=== PATIENT | male | born 1955 | race Caucasian/White ===

== ENCOUNTER 2016-09-25 15:23 | Inpatient (IN) | payer OTHER ==
--- NOTE | 2016-09-25 15:34 | ED ---
General Adult HPI - General Source: RN notes reviewed <Owen Cisneros - Last Filed: 09/25/16 16:41> <Peewee Justin - Last Filed: 09/25/16 18:35> - General Stated complaint: Syncope Time Seen by Provider: 09/25/16 15:25 - History of Present Illness Initial comments: This is a 61-year-old male presents to the emergency department complaining that he has been sick for about 5 days with a fever. Patient states the fever broke on Sunday has had a fever since. Patient states initially he was coughing a lot and occasionally coughed up some sputum. He denied any chest pain palpitations or shortness of breath. Patient states today he was at home he was trying to keep himself hydrated he stood up to go to the bathroom he walked a few feet became dizzy and went to the floor he states he may have passed out for 5 seconds but that said it was for very short period of time. Patient denies any injury when he let himself to the floor. Patient denies any nausea vomiting or diarrhea. Patient denies any dysuria or hematuria. She denies any headache patient denies numbness weakness. Patient denies any back pain. (Owen Cisneros) - Related Data Home Medications Medication Instructions Recorded Confirmed Aspirin EC [Ecotrin Low Dose] 81 mg PO DAILY 09/25/16 09/25/16 Atorvastatin [Lipitor] 40 mg PO DAILY 09/25/16 09/25/16 DULoxetine HCL [Cymbalta] 20 mg PO DAILY 09/25/16 09/25/16 Fluticasone Nasal [place] [Flonase 2 spr EA NOSTRIL DAILY 09/25/16 09/25/16 Nasal [place]] HYDROcodone/APAP 5-325MG [[place] 1 - 2 tab PO Q4HR PRN 09/25/16 09/25/16 5-325] Insulin Aspart [NovoLOG] See Protocol SQ AC-TID 09/25/16 09/25/16 Insulin Glargine [Lantus] 80 unit SQ BID 09/25/16 09/25/16 Losartan/Hydrochlorothiazide 1 tab PO DAILY 09/25/16 09/25/16 [Losartan-Hctz 100-25 mg Tab] Metoprolol Tartrate [Lopressor] 50 mg PO DAILY 09/25/16 09/25/16 Multivitamins, Thera [Multivitamin] 1 tab PO DAILY 09/25/16 09/25/16 Omeprazole 20 mg PO DAILY 09/25/16 09/25/16 Allergies Allergy/AdvReac Type Severity Reaction Status Date / Time lorazepam [From Ativan] AdvReac Confusion Verified 09/25/16 16:32 Review of Systems ROS Other: All systems not noted in ROS Statement are negative. <Owen Cisneros - Last Filed: 09/25/16 16:41> ROS Other: All systems not noted in ROS Statement are negative. <Peewee Justin - Last Filed: 09/25/16 18:35> ROS Statement: Those systems with pertinent positive or pertinent negative responses have been documented in the HPI. General Exam <Owen Cisneros - Last Filed: 09/25/16 16:41> <Peewee Justin - Last Filed: 09/25/16 18:35> - General Exam Comments Initial Comments: GENERAL: Patient is well-developed and well-nourished. Patient is nontoxic and well- hydrated and is in mild distress. ENT: Neck is soft and supple. No significant lymphadenopathy is noted. Oropharynx is clear. Moist mucous membranes. Neck has full range of motion without eliciting any pain. EYES: The sclera were anicteric and conjunctiva were pink and moist. Extraocular movements were intact and pupils were equal round and reactive to light. Eyelids were unremarkable. PULMONARY: Unlabored respirations. Good breath sounds bilaterally. No audible rales rhonchi or wheezing was noted. CARDIOVASCULAR: There is a regular rate and rhythm without any murmurs gallops or rubs. ABDOMEN: Soft and nontender with normal bowel sounds. SKIN: Skin is clear with no lesions or rashes and otherwise unremarkable. NEUROLOGIC: Patient is alert and oriented x3. Cranial nerves II through XII are grossly intact. Motor and sensory are also intact. Normal speech, volume and content. Symmetrical smile. MUSCULOSKELETAL: Normal extremities with adequate strength and full range of motion. LYMPHATICS: No significant lymphadenopathy is noted PSYCHIATRIC: Normal psychiatric evaluation. Normal interpersonal interactions appears functionally intact in deals appropriately with others. No signs of depression. No signs of anxiety. (Owen Cisneros) Medical Decision Making - Lab Data Result diagrams: 09/25/16 15:35 09/25/16 15:35 <Owen Cisneros - Last Filed: 09/25/16 16:41> - Lab Data Result diagrams: 09/25/16 15:35 09/25/16 15:35 <Peewee Justin - Last Filed: 09/25/16 18:35> - Medical Decision Making EKG shows normal sinus rhythm at 90 bpm [place] interval is 138 QRS is 94 QT interval 372 QTC is 477. Patient's EKG shows no ST segment elevation or depression or T-wave abdomen is noted Orthostatics were positive from sitting to lying to sitting Dr. Justin will be taking over the care of this patient at 5pm. (Owen Cisneros) The laboratories reviewed and shows elevation of the renal function studies with a creatinine at 1.7. The magnesium was low at 1.3. Liver function studies are elevated but he states that he has a history of similar. Chest x- ray shows cardiomegaly. Overall is felt as though he likely recently had a viral illness which is essentially resolved but he still dehydrated and this likely caused a bump and his BUN and creatinine. Is felt as though he benefit from admission overnight for further treatment. He is agreeable and patient is admitted as a short stay admission. Case is discussed with internal medicine and they are agreeable. (Peewee Justin) - Lab Data Lab Results 09/25/16 09/25/16 09/25/16 Range/Units 15:35 15:35 15:35 WBC 7.7 (3.8-10.6) k/uL RBC 4.82 (4.30-5.90) m/uL Hgb 12.3 L (13.0-17.5) gm/dL Hct 39.3 (39.0-53.0) % MCV 81.4 (80.0-100.0) fL MCH 25.5 (25.0-35.0) pg MCHC 31.3 (31.0-37.0) g/dL RDW 16.9 H (11.5-15.5) % Plt Count 271 (150-450) k/uL Neutrophils % 55 % Lymphocytes % 36 % Monocytes % 5 % Eosinophils % 2 % Basophils % 1 % Neutrophils # 4.3 (1.3-7.7) k/uL Lymphocytes # 2.8 (1.0-4.8) k/uL Monocytes # 0.4 (0-1.0) k/uL Eosinophils # 0.2 (0-0.7) k/uL Basophils # 0.0 (0-0.2) k/uL Hypochromasia Slight Anisocytosis Slight PT (9.0-12.0) sec INR (<1.1) APTT (22.0-30.0) sec Sodium 144 (137-145) mmol/L Potassium 4.0 (3.5-5.1) mmol/L Chloride 102 (98-107) mmol/L Carbon Dioxide 26 (22-30) mmol/L Anion Gap 16 mmol/L BUN 26 H (9-20) mg/dL Creatinine 1.70 H (0.66-1.25) mg/dL Est GFR (MDRD) Af Amer 50 (>60 ml/min/1.73 sqM) Est GFR (MDRD) Non-Af 41 (>60 ml/min/1.73 sqM) Glucose 144 H (74-99) mg/dL Calcium 9.2 (8.4-10.2) mg/dL Magnesium 1.3 L (1.6-2.3) mg/dL Total Bilirubin 0.9 (0.2-1.3) mg/dL AST 134 H (17-59) U/L ALT 85 H (21-72) U/L Alkaline Phosphatase 98 (38-126) U/L Total Creatine Kinase 81 (55-170) U/L CK-MB (CK-2) 0.9 (0.0-2.4) ng/mL CK-MB (CK-2) Rel Index 1.1 Troponin I <0.012 (0.000-0.034) ng/mL Total Protein 7.9 (6.3-8.2) g/dL Albumin 4.0 (3.5-5.0) g/dL Urine Color Urine Appearance (Clear) Urine pH (5.0-8.0) Ur Specific [place] (1.001-1.035) Urine Protein (Negative) Urine Glucose (UA) (Negative) Urine Ketones (Negative) Urine Blood (Negative) Urine Nitrate (Negative) Urine Bilirubin (Negative) Urine Urobilinogen (<2.0) mg/dL Ur Leukocyte Esterase (Negative) Urine RBC (0-5) /hpf Urine WBC (0-5) /hpf Amorphous Sediment (None) /hpf Hyaline Casts (0-2) /lpf Urine Mucus (None) /hpf 09/25/16 09/25/16 Range/Units 15:35 18:15 WBC (3.8-10.6) k/uL RBC (4.30-5.90) m/uL Hgb (13.0-17.5) gm/dL Hct (39.0-53.0) % MCV (80.0-100.0) fL MCH (25.0-35.0) pg MCHC (31.0-37.0) g/dL RDW (11.5-15.5) % Plt Count (150-450) k/uL Neutrophils % % Lymphocytes % % Monocytes % % Eosinophils % % Basophils % % Neutrophils # (1.3-7.7) k/uL Lymphocytes # (1.0-4.8) k/uL Monocytes # (0-1.0) k/uL Eosinophils # (0-0.7) k/uL Basophils # (0-0.2) k/uL Hypochromasia Anisocytosis PT 11.5 (9.0-12.0) sec INR 1.1 (<1.1) APTT 24.5 (22.0-30.0) sec Sodium (137-145) mmol/L Potassium (3.5-5.1) mmol/L Chloride (98-107) mmol/L Carbon Dioxide (22-30) mmol/L Anion Gap mmol/L BUN (9-20) mg/dL Creatinine (0.66-1.25) mg/dL Est GFR (MDRD) Af Amer (>60 ml/min/1.73 sqM) Est GFR (MDRD) Non-Af (>60 ml/min/1.73 sqM) Glucose (74-99) mg/dL Calcium (8.4-10.2) mg/dL Magnesium (1.6-2.3) mg/dL Total Bilirubin (0.2-1.3) mg/dL AST (17-59) U/L ALT (21-72) U/L Alkaline Phosphatase (38-126) U/L Total Creatine Kinase (55-170) U/L CK-MB (CK-2) (0.0-2.4) ng/mL CK-MB (CK-2) Rel Index Troponin I (0.000-0.034) ng/mL Total Protein (6.3-8.2) g/dL Albumin (3.5-5.0) g/dL Urine Color Dark Yellow Urine Appearance Cloudy (Clear) Urine pH 5.5 (5.0-8.0) Ur Specific [place] 1.015 (1.001-1.035) Urine Protein 1+ H (Negative) Urine Glucose (UA) Negative (Negative) Urine Ketones Negative (Negative) Urine Blood Negative (Negative) Urine Nitrate Negative (Negative) Urine Bilirubin Negative (Negative) Urine Urobilinogen 2.0 (<2.0) mg/dL Ur Leukocyte Esterase Negative (Negative) Urine RBC 3 (0-5) /hpf Urine WBC 8 H (0-5) /hpf Amorphous Sediment Few H (None) /hpf Hyaline Casts 181 H (0-2) /lpf Urine Mucus Rare H (None) /hpf Disposition <Owen Cisneros - Last Filed: 09/25/16 16:41> Time of Disposition: 18:35 Decision Date: 09/25/16 Decision Time: 18:35 <Peewee Justin - Last Filed: 09/25/16 18:35> Clinical Impression: Syncope, Dehydration, Hypomagnesemia, Transaminitis, Acute kidney injury, Cardiomegaly Disposition: ADMITTED IP TO THIS HOSP Condition: Fair
[2016-09-25 15:43] LABS: Anisocytosis Slight; Basophils % (A) 1 %; CH 25.7; CHCM 31.7; Eosinophils # (A) 0.2 k/uL (0-0.7); Eosinophils % (A) 2 %; HCT 39.3 % (39.0-53.0); HDW 2.82; HGB 12.3 gm/dL (13.0-17.5); Hypochromasia Slight; Luc # (Auto) 0.14; Luc % (Auto) 2; Lymphocytes # (A) 2.8 k/uL (1.0-4.8); Lymphocytes % (A) 36 %; MCH 25.5 pg (25.0-35.0); MCHC 31.3 g/dL (31.0-37.0); MCV 81.4 fL (80.0-100.0); Mean Platelet Volume 6.5; Monocytes # (A) 0.4 k/uL (0-1.0); Monocytes % (A) 5 %; Neutrophils # (A) 4.3 k/uL (1.3-7.7); Neutrophils % (A) 55 %; RBC 4.82 m/uL (4.30-5.90); RDW 16.9 % (11.5-15.5); WBC 7.7 k/uL (3.8-10.6); WBC (Perox) 7.65
[2016-09-25 15:52] LABS: Calcium 9.2 mg/dL (8.4-10.2); Magnesium 1.3 mg/dL (1.6-2.3); Total Bilirubin 0.9 mg/dL (0.2-1.3); Total Protein 7.9 g/dL (6.3-8.2)
[2016-09-25] MEDS: SODIUM CHLORIDE 0.9% 500 ML IV STA ×2 (15:53→16:23)
[2016-09-25 16:05] LABS: Creatine Kinase 81 U/L (55-170)
[2016-09-25 16:19] LABS: Creatine Kinase MB 0.9 ng/mL (0.0-2.4); Troponin I <0.012 ng/mL (0.000-0.034)
[2016-09-25 16:21] LABS: INR 1.1 (<1.1); Partial Thromboplastin Time 24.5 sec (22.0-30.0); Prothrombin Time 11.5 sec (9.0-12.0)
--- NOTE | 2016-09-25 16:53 | XR ---
EXAMINATION TYPE: XR chest 2V DATE OF EXAM: 09/25/2016 4:50 PM COMPARISON: NONE HISTORY: Syncope today and flulike symptoms TECHNIQUE: Frontal and lateral views of the chest are obtained. FINDINGS: There is no focal air space opacity, pleural effusion, or pneumothorax seen. The cardiac silhouette size is enlarged. The osseous structures are intact. IMPRESSION: Cardiomegaly without acute pulmonary process.
[2016-09-25 18:28] LABS: Amorphous Sediment,Urine Few /hpf; Appearance,Urine Cloudy (Clear); Bilirubin,Urine Negative (Negative); Glucose,Urine (UA) Negative (Negative); Ketones,Urine Negative (Negative); Leukocyte Esterase,Urine Negative (Negative); Mucus,Urine Rare /hpf; Nitrite,Urine Negative (Negative); PH, Urine 5.5 (5.0-8.0); Particle Count 6979; Protein,Urine 1+ (Negative); RBC,Urine 3 /hpf (0-5); Specific Gravity,Urine 1.015 (1.001-1.035); UA Billing (MACRO vs. MICRO) MICRO; WBC,Urine 8 /hpf (0-5)
[2016-09-25] MEDS ORDERED: SODIUM CHLORIDE 0.9% 500 ML IV STA (18:31)
[2016-09-25] MEDS ORDERED: SODIUM CHLORIDE 0.9% 1,000 ML IV STA (18:31)
[2016-09-25] MEDS ORDERED: ACETAMINOPHEN TAB 325 MG TAB PO PRN (18:36)
[2016-09-25] MEDS ORDERED: NALOXONE 0.4 MG/ML 1 ML VIAL IV PRN (18:36)
[2016-09-25] MEDS ORDERED: ONDANSETRON 4 MG/2 ML VIAL IVP PRN (18:36)
[2016-09-25] MEDS ORDERED: HYDROcodone/APAP 5-325MG 1 EACH TAB PO PRN (18:38)
[2016-09-25 19:00] LABS: Glucose,Whole Blood 82 mg/dL (75-99)
[2016-09-25] MEDS ORDERED: INSULIN GLARGINE 100 UNIT/ML 10 ML VIAL SQ SCH (21:00)
[2016-09-25] MEDS: ENOXAPARIN 40 MG/0.4 ML SYRINGE SQ SCH (21:13)
[2016-09-25] MEDS: MAGNESIUM SULFATE-D5W PMX 1 GM in DEXTROSE/WATER 1 100ML.BAG IVPB SCH ×2 (21:13→23:36)
[2016-09-25 21:31] LABS: Glucose,Whole Blood 152 mg/dL (75-99)
[2016-09-26 01:48] LABS: Glucose,Whole Blood 142 mg/dL (75-99)
[2016-09-26 05:56] LABS: Glucose,Whole Blood 120 mg/dL (75-99)
[2016-09-26 06:28] LABS: Anisocytosis Slight; Basophils % (A) 0 %; CH 25.5; CHCM 31.4; Eosinophils # (A) 0.2 k/uL (0-0.7); Eosinophils % (A) 2 %; HCT 34.5 % (39.0-53.0); HDW 2.73; HGB 10.8 gm/dL (13.0-17.5); Hypochromasia Slight; Luc # (Auto) 0.14; Luc % (Auto) 2; Lymphocytes # (A) 2.4 k/uL (1.0-4.8); Lymphocytes % (A) 36 %; MCH 25.6 pg (25.0-35.0); MCHC 31.4 g/dL (31.0-37.0); MCV 81.5 fL (80.0-100.0); Mean Platelet Volume 6.6; Monocytes # (A) 0.4 k/uL (0-1.0); Monocytes % (A) 6 %; Neutrophils # (A) 3.5 k/uL (1.3-7.7); Neutrophils % (A) 53 %; RBC 4.24 m/uL (4.30-5.90); RDW 16.8 % (11.5-15.5); WBC 6.6 k/uL (3.8-10.6); WBC (Perox) 6.77
[2016-09-26 06:48] LABS: Anion Gap 13 mmol/L; Blood Urea Nitrogen 21 mg/dL (9-20); Calcium 8.6 mg/dL (8.4-10.2); Carbon Dioxide 26 mmol/L (22-30); Chloride 101 mmol/L (98-107); Glucose 122 mg/dL (74-99); Magnesium 1.6 mg/dL (1.6-2.3); Non-African American GFR(MDRD) 56 (>60 ml/min/1.73 sqM); Potassium 3.3 mmol/L (3.5-5.1); Sodium 140 mmol/L (137-145)
[2016-09-26] MEDS ORDERED: PANTOPRAZOLE 40 MG TABLET PO SCH (07:30)
[2016-09-26] MEDS ORDERED: Potassium Replacement Protocol 1 EACH MISC MISCELLANE PRN (08:41)
[2016-09-26] MEDS ORDERED: Magnesium Replacement Protocol 1 EACH MISC MISCELLANE PRN (08:42)
[2016-09-26] MEDS ORDERED: FLUTICASONE 50MCG/SPRAY NASAL 16GM EA NOSTRIL SCH (09:00)
[2016-09-26] MEDS ORDERED: INSULIN GLARGINE 100 UNIT/ML 10 ML VIAL SQ SCH (09:00)
[2016-09-26] MEDS ORDERED: LOSARTAN-HCTZ 50-12.5 MG 1 EACH TAB PO SCH (09:00)
[2016-09-26] MEDS ORDERED: ASPIRIN 81 MG CHEW PO SCH (09:00)
[2016-09-26] MEDS ORDERED: DULoxetine HCL 20 MG CAPSULE.DR PO SCH (09:00)
[2016-09-26] MEDS ORDERED: ATORVASTATIN 40 MG TAB PO SCH (09:00)
[2016-09-26] MEDS ORDERED: MULTIVITAMINS, THERA 1 EACH TAB PO SCH (09:00)
[2016-09-26] MEDS ORDERED: METOPROLOL TARTRATE 50 MG TAB PO SCH (09:00)
[2016-09-26] MEDS: ENOXAPARIN 40 MG/0.4 ML SYRINGE SQ SCH (09:52)
[2016-09-26] MEDS: MAGNESIUM SULFATE-D5W PMX 1 GM in DEXTROSE/WATER 1 100ML.BAG IVPB SCH ×2 (09:54→11:34)
[2016-09-26] MEDS: POTASSIUM CHLORIDE ER 20 MEQ TAB.ER PO SCH ×2 (09:55→11:34)
[2016-09-26 10:11] LABS: Hemoglobin A1C 9.1 % (4.2-6.1)
--- NOTE | 2016-09-26 10:43 | ECHOF ---
Referral Reason:syncope MEASUREMENTS -------- HEIGHT: 182.9 cm WEIGHT: 127.9 kg BP: 148/87 RVIDd: 3.4 cm (< 3.3) IVSd: 1.2 cm (0.6 - 1.1) LVIDd: 5.0 cm (3.9 - 5.3) LVPWd: 1.2 cm (0.6 - 1.1) IVSs: 1.9 cm LVIDs: 3.4 cm LVPWs: 1.9 cm LA Diam: 3.5 cm (2.7 - 3.8) LAESV Index (A-L): 21.36 ml/m Ao Diam: 3.7 cm (2.0 - 3.7) AV Cusp: 2.4 cm (1.5 - 2.6) MV EXCURSION: 19.089 mm (> 18.000) MV EF SLOPE: 75 mm/s (70 - 150) EPSS: 0.7 cm MV E Michael: 0.74 m/s MV DecT: 179 ms MV A Michael: 0.92 m/s MV E/A Ratio: 0.81 RAP: 5.00 mmHg RVSP: 32.23 mmHg FINDINGS -------- Sinus rhythm. This was a technically adequate study. The left ventricular size is normal. There is borderline concentric left ventricular hypertrophy. Overall left ventricular systolic function is normal with, an EF between 60 - 65 %. The right ventricle is mildly enlarged. The left atrium is normal in size. Normal LA size by volume 22+/-6 ml/m2. The right atrium is normal in size. The aortic valve is trileaflet and appears structurally normal. Mild mitral annular calcification present. There is trace mitral regurgitation. Mild tricuspid regurgitation present. Right ventricular systolic pressure is normal at < 35 mmHg. The pulmonic valve is normal. There is no pulmonic regurgitation present. The aortic root is dilated measuring 3.7cm. There is no pericardial effusion. CONCLUSIONS -------- 1. Sinus rhythm. 2. Mild mitral annular calcification present. 3. There is trace mitral regurgitation. 4. Mild tricuspid regurgitation present. 5. Right ventricular systolic pressure is normal at < 35 mmHg. 6. The aortic root is dilated measuring 3.7cm. 7. There is no pericardial effusion. 8. This was a technically adequate study. 9. The left ventricular size is normal. 10. There is borderline concentric left ventricular hypertrophy. 11. Overall left ventricular systolic function is normal with, an EF between 60 - 65 %. 12. The right ventricle is mildly enlarged. 13. Normal LA size by volume 22+/-6 ml/m2. 14. The right atrium is normal in size. 15. The aortic valve is trileaflet and appears structurally normal. PHARMACY STUDENT: Parul Smith RDCS
[2016-09-26 11:05] VITALS: BMI 38.3
[2016-09-26 11:32] LABS: Glucose,Whole Blood 221 mg/dL (75-99)
[2016-09-26 11:54] VITALS: BP 137/67; PULSE 78; RESP 18; TEMP 98.9
[2016-09-26] MEDS ORDERED: INSULIN LISPRO (humaLOG) 300 UNIT/3 ML VIAL SQ SCH (12:30)
--- NOTE | 2016-09-26 18:15 | HP ---
H&P AND DISCHARGE SUMMARY DATE OF ADMISSION: Patient is a 61-year-old gentleman who came in with an episode of syncope that lasted for a few seconds. Patient did not have any seizure-like activity. His episode was not a seizure. Patient was found to be in acute renal failure with elevated BUN and creatinine. Patient also has hypokalemia. Patient was on lisinopril hydrochlorothiazide. Patient had flu-like symptoms about a week ago; completely resolved. Denied any diarrhea. Influenza testing here is negative. The rest of the workup is negative. Patient had an echocardiogram which was negative. Patient is clinically doing well. Dizziness has completely resolved. Patient will be discharged today with some modifications in medications. I will discharge him on losartan only without hydrochlorothiazide. Patient will be encouraged to drink water at home. Patient will be discharged today. His kidney function improved from 1.6 creatinine to 1.3. Patient is otherwise clinically doing well. Even the losartan I asked him to hold it tomorrow in spite of elevated blood pressure. He can start that medication on morning. REVIEW OF SYSTEMS: CONSTITUTIONAL: No fever, no malaise, no fatigue. HEENT: No recent visual problems or hearing problems. Denied any sore throat. CARDIOVASCULAR: As described in HPI. Patient denied any chest pain. Patient denied any orthopnea, PND. Patient denied any shortness of breath. PULMONARY: No shortness of breath, no cough, no hemoptysis. GASTROINTESTINAL: No diarrhea, no nausea, no vomiting, no abdominal pain. Normoactive bowel sounds. NEUROLOGICAL: No headaches, no weakness, no numbness. HEMATOLOGICAL: Denies any bleeding or petechiae. GENITOURINARY: Denies any burning micturition, frequency, or urgency. MUSCULOSKELETAL/RHEUMATOLOGICAL: Denies any joint pain, swelling, or any muscle pain. ENDOCRINE: Denies any polyuria or polydipsia. The rest of the 14 point review of systems is negative. Home medications include: 1. Aspirin. 2. Atorvastatin. 3. Duloxetine. 4. Fluticasone. 5. Hydrocodone/acetaminophen . 6. Aspart subcutaneously before meals t.i.d. 7. Sliding scale glargine 80 units b.i.d. 8. Losartan hydrochlorothiazide 1 tablet daily. 9. Metoprolol 50 p.o. daily. 10. Multivitamin. 11. Omeprazole 20 mg daily. ALLERGIES: LORAZEPAM. Past medical history is significant for: 1. Diabetes mellitus. 2. Hyperlipidemia. 3. Hypertension. 4. Obesity. Patient denied any sleep apnea history. 5. Basal cell carcinoma. 6. Anxiety. 7. Depression. Denied any smoking, alcohol abuse or any drug abuse. FAMILY HISTORY: Unknown, as patient is adopted. Patient's hemoglobin A1c is 9.1. PHYSICAL EXAMINATION: VITAL SIGNS: Temperature afebrile. GENERAL: Alert and oriented x3. Morbidly obese. HEENT: Pupils are round and equally reacting to light. EOMI. No scleral icterus. No conjunctival pallor. Normocephalic, atraumatic. No pharyngeal erythema. No thyromegaly. CARDIOVASCULAR: S1 and S2 present. No murmurs, rubs, or gallops. PULMONARY: Chest is clear to auscultation, no wheezing or crackles. ABDOMEN: Soft, nontender, nondistended, normoactive bowel sounds. No palpable organomegaly. MUSCULOSKELETAL: No joint swelling or deformity. EXTREMITIES: No cyanosis, clubbing, or pedal edema. NEUROLOGICAL: Gross neurological examination did not reveal any focal deficits. SKIN: No rashes. LABORATORY DATA: CBC, CMP are abnormal for normocytic anemia, anemia of chronic disease. Need further evaluation as an outpatient. BUN of 21, creatinine 1.3. When he came in, they were 26 and 0.7. AST and ALT are minimally elevated. Appears to be alcoholic hepatitis, although he denied any significant alcohol abuse. Can be non-alcoholic steatohepatitis. These can be repeated again as an outpatient. ASSESSMENT AND PLAN: 1. Syncopal episode secondary to intravascular volume depletion and dehydration, improved with IV fluid hydration and further management of medications as mentioned above. 2. Hypertension. Medication management as mentioned in the history itself. 3. Diabetes mellitus, type 2; uncontrolled blood sugars. Further management and titration of medications in the outpatient clinic by his primary care physician. 4. Mildly elevated liver enzymes; need to be repeated again as an outpatient. Patient probably has non-alcoholic steatohepatitis. Dietary counseling regarding obesity was provided. 5. Hypokalemia secondary to hydrochlorothiazide, which is being discontinued at this point of time. Patient will be started on losartan. This dictation is both H&P and discharge summary. DISCHARGE DIET: Cardiac and ADA 1800-calorie diet. Follow up with Dr. Klaudia Mcknight on October 02 at 2:45 p.m. Activity as tolerated. [facility] will follow the patient.
[2016-09-26] MEDS ORDERED: DOXYCYCLINE 50 MG CAP PO SCH (21:00)
== END 2016-09-26 17:15 | disposition home health service (06) | DRG 684 ==
LOC: EC 15:23 → 6SEL 18:36
PROVIDERS: ADMIT Internal Medicine; ATTEND Internal Medicine
PROC: 3E0234Z Introduction of Serum, Toxoid and Vaccine into Muscle, Percutaneous Approach (ICD-10-PCS; principal; 2016-09-25)
PROC: 3E0234Z Introduction of Serum, Toxoid and Vaccine into Muscle, Percutaneous Approach (ICD-10-PCS; 2016-09-25)
DX: N17.9 Acute kidney failure, unspecified (principal); K75.81 Nonalcoholic steatohepatitis (NASH); E11.65 Type 2 diabetes mellitus with hyperglycemia; E87.6 Hypokalemia; E86.0 Dehydration; E83.42 Hypomagnesemia; E78.5 Hyperlipidemia, unspecified; I10 Essential (primary) hypertension; R55 Syncope and collapse; D63.8 Anemia in other chronic diseases classified elsewhere; T50.2X5A Adverse effect of carbonic-anhydrase inhibitors, benzothiadiazides and other diuretics, initial encounter; F41.9 Anxiety disorder, unspecified; F32.9 Major depressive disorder, single episode, unspecified; R05 Cough; R74.0 Nonspecific elevation of levels of transaminase and lactic acid dehydrogenase [LDH]; R50.9 Fever, unspecified; R74.8 Abnormal levels of other serum enzymes; Z79.82 Long term (current) use of aspirin; Z88.8 Allergy status to other drugs, medicaments and biological substances; Z79.899 Other long term (current) drug therapy; Z79.4 Long term (current) use of insulin; Z86.19 Personal history of other infectious and parasitic diseases; Z85.828 Personal history of other malignant neoplasm of skin; Z23 Encounter for immunization; Z71.3 Dietary counseling and surveillance; Z79.891 Long term (current) use of opiate analgesic; Z79.51 Long term (current) use of inhaled steroids
CPT/HCPCS: 36415; 71020; 80048; 80053; 81001; 82550; 82553; 83036; 83735; 84132; 84484; 85025; 85610; 85730; 87040; 87502; 93005; 93306; 96360; 96361; 99285

== ENCOUNTER 2018-05-22 08:42 | Emergency (ER) | payer MEDICARE, OTHER ==
[2018-05-22 08:49] VITALS: BP 161/90; PULSE 95; RESP 16; TEMP 100.2
[2018-05-22] MEDS ORDERED: SODIUM CHLORIDE 0.9% 1,000 ML IV STA (09:03)
--- NOTE | 2018-05-22 09:14 | ED ---
General Adult HPI - General Chief complaint: Urogenital Stated complaint: Not able to urinate Time Seen by Provider: 05/22/18 08:47 Source: patient, RN notes reviewed Mode of arrival: ambulatory Limitations: no limitations - History of Present Illness Initial comments: Patient 63-year-old male presented to the emergency room today with chief complaint urinary retention. Patient does admit that he felt symptoms of the flu for the past 3 days. States he had chills and body aches. He states symptoms seem to be improving the last 2 days. He states that he woke up early this morning approximately 1 AM noticed a difficult time urinating. States he called the family doctor's office was advised come here to the emergency room. Patient states that he has been able to void just small amounts. Patient does admit to some pressure over the bladder. Patient does admit that he had some dysuria with burning sensation on last attempt to void. Patient denies any other complaints. Denies any known history of prostate disease. Patient denies any recent fever, chills, shortness of breath, chest pain, back pain, numbness or tingling, hematuria, constipation or diarrhea, headaches or visual changes, or any other complaints. - Related Data Home Medications Medication Instructions Recorded Confirmed Aspirin EC [Ecotrin Low Dose] 81 mg PO DAILY 09/25/16 05/22/18 Metoprolol Tartrate [Lopressor] 50 mg PO DAILY 09/25/16 09/25/16 Ammonium Lactate Cream [Lac-Hydrin 1 applic TOPICAL DAILY 05/22/18 05/22/18 12% Cream] Fibercon Powder (Unknown) 1 dose PO DAILY 05/22/18 Gabapentin [Neurontin] 300 mg PO TID 05/22/18 05/22/18 HYDROcodone/APAP 5-325MG [[place] 1 tab PO Q6HR PRN 05/22/18 05/22/18 5-325] [place] (Sliding Scale Unknown 05/22/18 INSULIN LISPRO (humaLOG) [humaLOG] 40 unit SQ TID 05/22/18 05/22/18 Insulin Glargine [Lantus] 75 unit SQ BID 05/22/18 05/22/18 Losartan/Hydrochlorothiazide 1 tab PO DAILY 05/22/18 05/22/18 [Losartan-Hctz 100-25 mg Tab] Metoprolol Tartrate [Lopressor] 50 mg PO DAILY 05/22/18 05/22/18 Multivitamins, Thera [Multivitamin 1 tab PO DAILY 05/22/18 05/22/18 (formulary)] Pravastatin Sodium [Pravachol] 40 mg PO HS 05/22/18 05/22/18 Sertraline [Zoloft] 100 mg PO DAILY 05/22/18 05/22/18 sitaGLIPtin [Januvia] 50 mg PO DAILY 05/22/18 05/22/18 Previous Rx's Medication Instructions Recorded Sulfamethox-Tmp 800-160Mg [Bactrim 1 tab PO Q12HR #28 tab 05/22/18 DS 800-160 mg] Allergies Allergy/AdvReac Type Severity Reaction Status Date / Time lorazepam [From Ativan] AdvReac Confusion Verified 05/22/18 09:43 Review of Systems ROS Statement: Those systems with pertinent positive or pertinent negative responses have been documented in the HPI. ROS Other: All systems not noted in ROS Statement are negative. Past Medical History Past Medical History: Diabetes Mellitus, Hyperlipidemia, Hypertension Additional Past Medical History / Comment(s): basal cell carcinoma (no active treatment), neuropathy to lower extremities, elevated liver enzymes History of Any Multi-Drug Resistant Organisms: None Reported Additional Past Surgical History / Comment(s): tonsilectomy & skin cancer removal Past Anesthesia/Blood Transfusion Reactions: No Reported Reaction Past Psychological History: Anxiety, Depression Smoking Status: Never smoker Past Alcohol Use History: None Reported Past Drug Use History: None Reported - Past Family History Father Additional Family Medical History / Comment(s): unknown patient was adopted Mother Additional Family Medical History / Comment(s): unknown patient was adopted General Exam - General Exam Comments Initial Comments: General: The patient is awake and alert, in no distress, and does not appear acutely ill. Eye: There is normal conjunctiva bilaterally. No signs of icterus. Ears, nose, mouth and throat: There are moist mucous membranes and no oral lesions. Neck: The neck is supple, there is no tenderness or JVD. Cardiovascular: There is a regular rate and rhythm. No murmur, rub or gallop is appreciated. Respiratory: Lungs are clear to auscultation, respirations are non-labored, breath sounds are equal. No wheezes, stridor, rales, or rhonchi. Gastrointestinal: Soft, non-distended, non-tender abdomen without masses or organomegaly noted. There is no rebound or guarding present. No CVA tenderness. Musculoskeletal: Normal ROM, no tenderness. Sensation intact. Neurological: A&O x 3. CN II-XII intact, There are no obvious motor or sensory deficits. Coordination appears grossly intact. Speech is normal. Skin: Skin is warm and dry and no rashes or lesions are noted. Psychiatric: Cooperative, appropriate mood & affect, normal judgment. Limitations: no limitations Course Vital Signs 05/22/18 08:46 Temperature 100.2 F H Pulse Rate 95 Respiratory 16 Rate Blood Pressure 161/90 O2 Sat by Pulse 100 Oximetry Medical Decision Making - Medical Decision Making Patient reexamined at this time shows no signs of distress. Resting comfortable. Patient's labs been reviewed. His urinalysis does show evidence for infection. Patient did have low-grade fever here in the emergency room 100.2F at triage. Patient did not want to take Tylenol as he states he does not like how it makes him feel. We did hold Tylenol at that time. Patient's chest x-ray and x-ray of the abdomen are unremarkable. Influenza is negative. Patient did have body aches over the weekend. He states his symptoms improved but he's had increased urinary frequency today. Bladder scan performed pre-and post void showing patient not retaining. Patient will be discharged On Antibiotics. Advised to Follow-Up with His Family Doctor Also Did Discuss about Following up with Urologist for Further Evaluation. Advised to Return to the Emergency Room for any concerns. - Lab Data Result diagrams: 05/22/18 09:50 05/22/18 09:50 Lab Results 05/22/18 05/22/18 05/22/18 Range/Units 08:50 09:50 09:50 WBC 10.5 (3.8-10.6) k/uL RBC 4.59 (4.30-5.90) m/uL Hgb 14.3 (13.0-17.5) gm/dL Hct 41.2 (39.0-53.0) % MCV 89.9 (80.0-100.0) fL MCH 31.1 (25.0-35.0) pg MCHC 34.6 (31.0-37.0) g/dL RDW 14.3 (11.5-15.5) % Plt Count 251 (150-450) k/uL Neutrophils % 77 % Lymphocytes % 15 % Monocytes % 5 % Eosinophils % 1 % Basophils % 0 % Neutrophils # 8.1 H (1.3-7.7) k/uL Lymphocytes # 1.6 (1.0-4.8) k/uL Monocytes # 0.5 (0-1.0) k/uL Eosinophils # 0.1 (0-0.7) k/uL Basophils # 0.0 (0-0.2) k/uL Sodium 140 (137-145) mmol/L Potassium 4.1 (3.5-5.1) mmol/L Chloride 102 (98-107) mmol/L Carbon Dioxide 27 (22-30) mmol/L Anion Gap 11 mmol/L BUN 19 (9-20) mg/dL Creatinine 1.02 (0.66-1.25) mg/dL Est GFR (CKD-EPI)AfAm 89 (>60 ml/min/1.73 sqM) Est GFR (CKD-EPI)NonAf 77 (>60 ml/min/1.73 sqM) Glucose 173 H (74-99) mg/dL Plasma Lactic Acid Howard (0.7-2.0) mmol/L Calcium 9.0 (8.4-10.2) mg/dL Total Bilirubin 1.0 (0.2-1.3) mg/dL AST 54 (17-59) U/L ALT 47 (21-72) U/L Alkaline Phosphatase 128 H (38-126) U/L Total Protein 7.5 (6.3-8.2) g/dL Albumin 3.7 (3.5-5.0) g/dL Urine Color Yellow Urine Appearance Clear (Clear) Urine pH 7.5 (5.0-8.0) Ur Specific [place] 1.016 (1.001-1.035) Urine Protein Trace H (Negative) Urine Glucose (UA) Negative (Negative) Urine Ketones Negative (Negative) Urine Blood Negative (Negative) Urine Nitrite Negative (Negative) Urine Bilirubin Negative (Negative) Urine Urobilinogen 2.0 (<2.0) mg/dL Ur Leukocyte Esterase Trace H (Negative) Urine RBC 3 (0-5) /hpf Urine WBC 17 H (0-5) /hpf Ur Squamous Epith Cells <1 (0-4) /hpf Influenza Type A RNA (Not Detectd) Influenza Type B (PCR) (Not Detectd) 05/22/18 05/22/18 Range/Units 09:50 09:50 WBC (3.8-10.6) k/uL RBC (4.30-5.90) m/uL Hgb (13.0-17.5) gm/dL Hct (39.0-53.0) % MCV (80.0-100.0) fL MCH (25.0-35.0) pg MCHC (31.0-37.0) g/dL RDW (11.5-15.5) % Plt Count (150-450) k/uL Neutrophils % % Lymphocytes % % Monocytes % % Eosinophils % % Basophils % % Neutrophils # (1.3-7.7) k/uL Lymphocytes # (1.0-4.8) k/uL Monocytes # (0-1.0) k/uL Eosinophils # (0-0.7) k/uL Basophils # (0-0.2) k/uL Sodium (137-145) mmol/L Potassium (3.5-5.1) mmol/L Chloride (98-107) mmol/L Carbon Dioxide (22-30) mmol/L Anion Gap mmol/L BUN (9-20) mg/dL Creatinine (0.66-1.25) mg/dL Est GFR (CKD-EPI)AfAm (>60 ml/min/1.73 sqM) Est GFR (CKD-EPI)NonAf (>60 ml/min/1.73 sqM) Glucose (74-99) mg/dL Plasma Lactic Acid Howard 1.5 (0.7-2.0) mmol/L Calcium (8.4-10.2) mg/dL Total Bilirubin (0.2-1.3) mg/dL AST (17-59) U/L ALT (21-72) U/L Alkaline Phosphatase (38-126) U/L Total Protein (6.3-8.2) g/dL Albumin (3.5-5.0) g/dL Urine Color Urine Appearance (Clear) Urine pH (5.0-8.0) Ur Specific [place] (1.001-1.035) Urine Protein (Negative) Urine Glucose (UA) (Negative) Urine Ketones (Negative) Urine Blood (Negative) Urine Nitrite (Negative) Urine Bilirubin (Negative) Urine Urobilinogen (<2.0) mg/dL Ur Leukocyte Esterase (Negative) Urine RBC (0-5) /hpf Urine WBC (0-5) /hpf Ur Squamous Epith Cells (0-4) /hpf Influenza Type A RNA Not Detected (Not Detectd) Influenza Type B (PCR) Not Detected (Not Detectd) Disposition Clinical Impression: UTI (urinary tract infection) Disposition: HOME SELF-CARE Condition: Good Instructions: Urinary Tract Infection in Men (ED) Additional Instructions: Please use medication as discussed. Please follow-up with family doctor in the next 2 days of symptoms have not improved. Please return to emergency room if the symptoms increase or worsen or for any other concerns. Prescriptions: Sulfamethox-Tmp 800-160Mg [Bactrim DS 800-160 mg] 1 tab PO Q12HR #28 tab Is patient prescribed a controlled substance at d/c from ED?: No Referrals: Klaudia Mcknight MD [Primary Care Provider] - 1-2 days Time of Disposition: 11:28
[2018-05-22 10:01] LABS: Appearance,Urine Clear (Clear); Bilirubin,Urine Negative (Negative); Blood,Urine Negative (Negative); Color,Urine Yellow; Glucose,Urine (UA) Negative (Negative); Ketones,Urine Negative (Negative); Leukocyte Esterase,Urine Trace (Negative); Nitrite,Urine Negative (Negative); PH, Urine 7.5 (5.0-8.0); Protein,Urine Trace (Negative); RBC,Urine 3 /hpf (0-5); Specific Gravity,Urine 1.016 (1.001-1.035); Squamous Epithelial Cell,Urine <1 /hpf (0-4); WBC,Urine 17 /hpf (0-5)
[2018-05-22 10:23] LABS: Basophils % (A) 0 %; Eosinophils # (A) 0.1 k/uL (0-0.7); Eosinophils % (A) 1 %; HCT 41.2 % (39.0-53.0); HGB 14.3 gm/dL (13.0-17.5); Lymphocytes # (A) 1.6 k/uL (1.0-4.8); Lymphocytes % (A) 15 %; MCH 31.1 pg (25.0-35.0); MCHC 34.6 g/dL (31.0-37.0); MCV 89.9 fL (80.0-100.0); Mean Platelet Volume 6.7; Monocytes # (A) 0.5 k/uL (0-1.0); Monocytes % (A) 5 %; Neutrophils # (A) 8.1 k/uL (1.3-7.7); Neutrophils % (A) 77 %; Platelet Count 251 k/uL (150-450); RBC 4.59 m/uL (4.30-5.90); RDW 14.3 % (11.5-15.5); WBC 10.5 k/uL (3.8-10.6)
[2018-05-22 10:38] LABS: Albumin 3.7 g/dL (3.5-5.0); Potassium 4.1 mmol/L (3.5-5.1); Total Protein 7.5 g/dL (6.3-8.2)
--- NOTE | 2018-05-22 10:39 | XR ---
EXAMINATION TYPE: XR chest 2V DATE OF EXAM: 05/22/2018 COMPARISON: Prior chest x-ray 09/25/2016 HISTORY: Fever TECHNIQUE: Frontal and lateral views of the chest are obtained. FINDINGS: There is no focal air space opacity, pleural effusion, or pneumothorax seen. Prominent easton g volume could be indicative of underlying COPD. Aorta is dense. The cardiac silhouette size is stabl e, patient is rotated. The osseous structures are intact. IMPRESSION: No acute cardiopulmonary process.
--- NOTE | 2018-05-22 10:40 | XR ---
Abdomen HISTORY: Difficulty passing urine, pain Frontal view of the abdomen on 2 images Lung bases are clear. There is no evident pneumoperitoneum or bowel obstruction. Degenerative disc ch anges are present in the visualized spine. Calcifications in the pelvis may be vascular. IMPRESSION: Nonobstructive bowel gas pattern.
== END 2018-05-22 11:59 | disposition home or self-care (01) ==
LOC: EC 08:42
DX: N39.0 Urinary tract infection, site not specified (principal); R52 Pain, unspecified; E78.5 Hyperlipidemia, unspecified; I10 Essential (primary) hypertension; E11.42 Type 2 diabetes mellitus with diabetic polyneuropathy; F32.9 Major depressive disorder, single episode, unspecified; F41.9 Anxiety disorder, unspecified; Z88.8 Allergy status to other drugs, medicaments and biological substances; Z79.4 Long term (current) use of insulin; Z79.82 Long term (current) use of aspirin; Z79.899 Other long term (current) drug therapy; Z85.828 Personal history of other malignant neoplasm of skin; Z98.890 Other specified postprocedural states
CPT/HCPCS: 36415; 51798; 71046; 74018; 80053; 81001; 83605; 85025; 87040; 87086; 87502; 96360; 96361; 99284

== ENCOUNTER 2018-10-25 20:43 | Inpatient (IN) | payer MEDICARE, OTHER ==
[2018-10-25] MEDS ORDERED: SODIUM CHLORIDE 0.9% 1,000 ML IV STA ×3 (21:12→22:38)
--- NOTE | 2018-10-25 21:16 | ED ---
Syncope HPI - General Chief Complaint: Syncope Stated Complaint: Syncope Time Seen by Provider: 10/25/18 21:05 Source: patient, EMS, RN notes reviewed, old records reviewed Mode of arrival: EMS Limitations: no limitations - History of Present Illness Initial Comments: This is a 63 year old female to the ED who co syncopal evenr prior to arrival. Happened around noon. Patient has no significant complaints. Feels like he has diarrhead and maybe the flu, mild nausea. Denies BOATENG, CP, SOB, Abd Pain. MD Complaint: loss of consciousness, collapsed -: minutes(s) Prodromal Symptoms: lightheaded, nausea/vomiting, other (dairrhea) -: second(s) Witnessed: no Current Symptoms: none, weakness History: previous syncopal episode Context: during exertion, getting out of bed, standing up Treatments Prior to Arrival: none - Related Data Home Medications Medication Instructions Recorded Confirmed Aspirin EC [Ecotrin Low Dose] 81 mg PO DAILY 09/25/16 10/25/18 Metoprolol Tartrate [Lopressor] 50 mg PO DAILY 09/25/16 10/25/18 Gabapentin [Neurontin] 300 mg PO TID 05/22/18 10/25/18 HYDROcodone/APAP 5-325MG [[place] 1 tab PO DAILY PRN 05/22/18 10/25/18 5-325] INSULIN LISPRO (humaLOG) [humaLOG] See Protocol SQ TID 05/22/18 10/25/18 Insulin Glargine [Lantus] 57 unit SQ BID 05/22/18 10/25/18 Losartan/Hydrochlorothiazide 1 tab PO DAILY 05/22/18 10/25/18 [Losartan-Hctz 100-25 mg Tab] Multivitamins, Thera [Multivitamin 1 tab PO DAILY 05/22/18 10/25/18 (formulary)] Pravastatin Sodium [Pravachol] 40 mg PO HS 05/22/18 10/25/18 Sertraline [Zoloft] 100 mg PO DAILY 05/22/18 10/25/18 sitaGLIPtin [Januvia] 50 mg PO DAILY 05/22/18 10/25/18 Cholecalciferol (Vitamin D3) 2,000 unit PO DAILY 10/25/18 10/25/18 [Vitamin D3] Allergies Allergy/AdvReac Type Severity Reaction Status Date / Time lorazepam [From Ativan] AdvReac LETHARGIC Verified 10/25/18 21:14 Review of Systems ROS Statement: Those systems with pertinent positive or pertinent negative responses have been documented in the HPI. ROS Other: All systems not noted in ROS Statement are negative. Past Medical History Past Medical History: Diabetes Mellitus, Hyperlipidemia, Hypertension Additional Past Medical History / Comment(s): basal cell carcinoma (no active treatment), neuropathy to lower extremities, elevated liver enzymes History of Any Multi-Drug Resistant Organisms: None Reported Additional Past Surgical History / Comment(s): tonsilectomy & skin cancer removal Past Anesthesia/Blood Transfusion Reactions: No Reported Reaction Past Psychological History: Anxiety, Depression Smoking Status: Never smoker Past Alcohol Use History: None Reported Past Drug Use History: None Reported - Past Family History Father Additional Family Medical History / Comment(s): unknown patient was adopted Mother Additional Family Medical History / Comment(s): unknown patient was adopted General Exam Limitations: no limitations General appearance: alert, in no apparent distress Head exam: Present: atraumatic, normocephalic, normal inspection Eye exam: Present: normal appearance, PERRL, EOMI. Absent: scleral icterus, conjunctival injection, periorbital swelling ENT exam: Present: normal exam, mucous membranes moist Neck exam: Present: normal inspection. Absent: tenderness, meningismus, lymphadenopathy Respiratory exam: Present: normal lung sounds bilaterally. Absent: respiratory distress, wheezes, rales, rhonchi, stridor Cardiovascular Exam: Present: regular rate, normal rhythm, normal heart sounds. Absent: systolic murmur, diastolic murmur, rubs, gallop, clicks GI/Abdominal exam: Present: soft, normal bowel sounds. Absent: distended, tenderness, guarding, rebound, rigid Extremities exam: Present: normal inspection, full ROM, normal capillary refill. Absent: tenderness, pedal edema, joint swelling, calf tenderness Back exam: Present: normal inspection Neurological exam: Present: alert, oriented X3, CN II-XII intact Psychiatric exam: Present: normal affect, normal mood Skin exam: Present: warm, dry, intact, normal color. Absent: rash Course Vital Signs 10/25/18 10/25/18 10/25/18 20:45 21:30 22:47 Temperature 97.0 F L Pulse Rate 94 90 82 Respiratory 18 18 18 Rate Blood Pressure 118/68 125/74 125/74 O2 Sat by Pulse 95 95 94 L Oximetry - Reevaluation(s) Reevaluation #1: 10/25/18 21:41 medical record is reviewed Reevaluation #2: 10/25/18 23:24 Patient's nausea improved, no headache chest pain shortness breath abdominal pain, no recurrent syncope Reevaluation #3: 10/26/18 00:45 patient updated on results EKG Findings - EKG Comments: EKG Findings:: EKG shows NSR rate of 93 [place] 168 QRS 110 QTc 484 Medical Decision Making - Medical Decision Making 63 male the ER status post syncopal event about 8 hours ago. Patient's was not feeling nauseous and feels like he maybe has the flu. Patient does have elevated troponin, - Lab Data Result diagrams: 10/25/18 21:04 10/25/18 21:04 Lab Results 10/25/18 10/25/18 10/25/18 Range/Units 21:04 21:04 21:04 WBC 14.1 H (3.8-10.6) k/uL RBC 5.27 (4.30-5.90) m/uL Hgb 15.2 (13.0-17.5) gm/dL Hct 46.0 (39.0-53.0) % MCV 87.3 (80.0-100.0) fL MCH 28.9 (25.0-35.0) pg MCHC 33.1 (31.0-37.0) g/dL RDW 15.4 (11.5-15.5) % Plt Count 253 (150-450) k/uL Neutrophils % 86 % Lymphocytes % 8 % Monocytes % 6 % Eosinophils % 0 % Basophils % 0 % Neutrophils # 12.0 H (1.3-7.7) k/uL Lymphocytes # 1.1 (1.0-4.8) k/uL Monocytes # 0.8 (0-1.0) k/uL Eosinophils # 0.1 (0-0.7) k/uL Basophils # 0.0 (0-0.2) k/uL PT 11.4 (9.0-12.0) sec INR 1.1 (<1.2) APTT 22.4 (22.0-30.0) sec D-Dimer (<0.60) mg/L FEU Sodium 144 (137-145) mmol/L Potassium 3.5 (3.5-5.1) mmol/L Chloride 102 (98-107) mmol/L Carbon Dioxide 26 (22-30) mmol/L Anion Gap 16 mmol/L BUN 19 (9-20) mg/dL Creatinine 1.32 H (0.66-1.25) mg/dL Est GFR (CKD-EPI)AfAm 65 (>60 ml/min/1.73 sqM) Est GFR (CKD-EPI)NonAf 57 (>60 ml/min/1.73 sqM) Glucose 154 H (74-99) mg/dL Calcium 9.9 (8.4-10.2) mg/dL Phosphorus 3.4 (2.5-4.5) mg/dL Magnesium 1.7 (1.6-2.3) mg/dL Total Bilirubin 0.5 (0.2-1.3) mg/dL AST 92 H (17-59) U/L ALT 72 (21-72) U/L Alkaline Phosphatase 114 (38-126) U/L Troponin I (0.000-0.034) ng/mL Total Protein 8.4 H (6.3-8.2) g/dL Albumin 4.5 (3.5-5.0) g/dL Influenza Type A RNA (Not Detectd) Influenza Type B (PCR) (Not Detectd) 10/25/18 10/25/18 10/25/18 Range/Units 21:04 21:49 22:15 WBC (3.8-10.6) k/uL RBC (4.30-5.90) m/uL Hgb (13.0-17.5) gm/dL Hct (39.0-53.0) % MCV (80.0-100.0) fL MCH (25.0-35.0) pg MCHC (31.0-37.0) g/dL RDW (11.5-15.5) % Plt Count (150-450) k/uL Neutrophils % % Lymphocytes % % Monocytes % % Eosinophils % % Basophils % % Neutrophils # (1.3-7.7) k/uL Lymphocytes # (1.0-4.8) k/uL Monocytes # (0-1.0) k/uL Eosinophils # (0-0.7) k/uL Basophils # (0-0.2) k/uL PT (9.0-12.0) sec INR (<1.2) APTT (22.0-30.0) sec D-Dimer 3.57 H (<0.60) mg/L FEU Sodium (137-145) mmol/L Potassium (3.5-5.1) mmol/L Chloride (98-107) mmol/L Carbon Dioxide (22-30) mmol/L Anion Gap mmol/L BUN (9-20) mg/dL Creatinine (0.66-1.25) mg/dL Est GFR (CKD-EPI)AfAm (>60 ml/min/1.73 sqM) Est GFR (CKD-EPI)NonAf (>60 ml/min/1.73 sqM) Glucose (74-99) mg/dL Calcium (8.4-10.2) mg/dL Phosphorus (2.5-4.5) mg/dL Magnesium (1.6-2.3) mg/dL Total Bilirubin (0.2-1.3) mg/dL AST (17-59) U/L ALT (21-72) U/L Alkaline Phosphatase (38-126) U/L Troponin I 0.486 H* (0.000-0.034) ng/mL Total Protein (6.3-8.2) g/dL Albumin (3.5-5.0) g/dL Influenza Type A RNA Not Detected (Not Detectd) Influenza Type B (PCR) Not Detected (Not Detectd) - Radiology Data Radiology results: report reviewed (CT angio chest positive for PE), image reviewed Critical Care Time Critical Care Time: Yes Total Critical Care Time: 65 Disposition Clinical Impression: Syncope, Dehydration, Acute pulmonary embolism Disposition: ADMITTED IP TO THIS [facility] Condition: Serious Is patient prescribed a controlled substance at d/c from ED?: No
[2018-10-25] MEDS ORDERED: ONDANSETRON 4 MG/2 ML VIAL IVP STA (21:28)
[2018-10-25 21:31] LABS: Basophils % (A) 0 %; Eosinophils # (A) 0.1 k/uL (0-0.7); Eosinophils % (A) 0 %; HGB 15.2 gm/dL (13.0-17.5); Lymphocytes # (A) 1.1 k/uL (1.0-4.8); Lymphocytes % (A) 8 %; MCH 28.9 pg (25.0-35.0); MCHC 33.1 g/dL (31.0-37.0); MCV 87.3 fL (80.0-100.0); Mean Platelet Volume 8.9; Monocytes # (A) 0.8 k/uL (0-1.0); Monocytes % (A) 6 %; Neutrophils % (A) 86 %; Platelet Count 253 k/uL (150-450); RBC 5.27 m/uL (4.30-5.90); RDW 15.4 % (11.5-15.5); WBC 14.1 k/uL (3.8-10.6)
[2018-10-25 21:42] LABS: Albumin 4.5 g/dL (3.5-5.0); Calcium 9.9 mg/dL (8.4-10.2); Magnesium 1.7 mg/dL (1.6-2.3); Phosphorus 3.4 mg/dL (2.5-4.5); Potassium 3.5 mmol/L (3.5-5.1); Total Bilirubin 0.5 mg/dL (0.2-1.3); Total Protein 8.4 g/dL (6.3-8.2)
[2018-10-25 21:43] LABS: INR 1.1 (<1.2); Partial Thromboplastin Time 22.4 sec (22.0-30.0); Prothrombin Time 11.4 sec (9.0-12.0)
[2018-10-25] MEDS ORDERED: NITROGLYCERIN SL TABS 0.4 MG TAB SUBLINGUAL PRN (23:26)
[2018-10-25] MEDS ORDERED: ASPIRIN 81 MG PO STA (23:26)
--- NOTE | 2018-10-26 00:44 | CT ---
EXAM: CT Chest With Intravenous Contrast CLINICAL HISTORY: Reason: Pain TECHNIQUE: Axial computed tomography images of the chest with intravenous contrast during the arterial phase of enhancement. CTDI is 33.3 mGy and DLP is 1007.1 mGy-cm. This CT exam was performed using one or more of the following dose reduction techniques: automated exposure control, adjustment of the mA and/or kV according to patient size, and/or use of iterative reconstruction technique. COMPARISON: Chest x-ray 05/22/2018 FINDINGS: Pulmonary arteries: Evidence of right upper lobe segmental pulmonary embolism extending into subsegmental branches (series 41 images 60-62). No other definite pulmonary emboli identified. Aorta: No thoracic aortic aneurysm or evidence of dissection. Lungs: No evidence of acute pulmonary parenchymal disease or consolidation. Mild biapical pleural-parietal scarring. Mild bibasilar dependent subsegmental atelectasis. Evidence of remote granulomatous disease with calcified pulmonary granuloma. Pleural space: No evidence of pleural effusion or pneumothorax. Heart: Borderline cardiomegaly. Coronary arterial calcifications. No significant pericardial effusion. Bones/joints: Degenerative changes throughout the thoracic and upper lumbar spine. Soft tissues: Mild bilateral gynecomastia. Lymph nodes: No evidence of lymphadenopathy. Liver: Hepatic morphology raising possibility of cirrhosis. Clinical correlation recommended. Kidneys and ureters: 2.4 cm left renal cyst. Small probable right renal cyst measuring approximately 1 cm. IMPRESSION: Evidence of right upper lobe segmental pulmonary embolism extending into subsegmental branches. No other definite pulmonary emboli identified. No thoracic aortic aneurysm or evidence of dissection. Borderline cardiomegaly. <MYCVCSECTION> Critical Value Communications 10/26/18 00:47 Call Doctor Regarding Pulmonary Embolism, called Dr. Vargas on 10/26 00:47 (-04:00)
[2018-10-26] MEDS ORDERED: HEPARIN SODIUM,PORCINE 10,000 UNIT/ML 1 ML VIAL IV ONE (00:46)
[2018-10-26] MEDS ORDERED: HEPARIN SODIUM,PORCINE 5,000 UNIT/ML 1 ML VIAL IV PRN (00:46)
[2018-10-26] MEDS: HEPARIN SOD,PORK IN 0.45% NACL 25,000 UNIT in 0.45% NACL 1 250ML.BAG IV SCH ×2 (01:21→15:22)
[2018-10-26 02:37] LABS: Appearance,Urine Clear (Clear); Bilirubin,Urine Negative (Negative); Blood,Urine Trace (Negative); Color,Urine Yellow; Glucose,Urine (UA) Negative (Negative); Hyaline Casts,Urine 4 /lpf (0-2); Ketones,Urine Negative (Negative); Leukocyte Esterase,Urine Negative (Negative); Mucus,Urine Rare /hpf; Nitrite,Urine Negative (Negative); Protein,Urine Trace (Negative); RBC,Urine 1 /hpf (0-5); Specific Gravity,Urine 1.025 (1.001-1.035); Squamous Epithelial Cell,Urine <1 /hpf (0-4); Urobilinogen,Urine <2.0 mg/dL (<2.0); WBC,Urine 2 /hpf (0-5)
[2018-10-26 06:29] LABS: Cholesterol 153 mg/dL (<200); HDL Cholesterol 33 mg/dL (40-60); LDL Cholesterol,Calculated 83 mg/dL (0-99); Triglycerides 184 mg/dL (<150)
[2018-10-26] MEDS ORDERED: ASPIRIN 325 MG TAB PO SCH (09:00)
--- NOTE | 2018-10-26 10:20 | P.CRDCN ---
History of Present Illness Consult date: 10/26/18 Consult reason: non-Q-wave NC History of present illness: IMPRESSION / ASSESSMENT: Right upper lobe pulmonary embolism Elevated troponin secondary to pulmonary embolism Acute coronary syndrome ruled out Hyperlipidemia Hypertension Diabetes mellitus type 2 PLAN: Continue heparin drip for pulmonary embolism Check echocardiogram Continue aspirin 81 mg daily, losartan/hydrochlorothiazide 100/25 daily, Lopressor 50 mg daily, pravastatin 40 mg at bedtime. HPI This is a 63-year-old male patient of Dr. 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 Patient states he passed out but has been feeling weak and tired. He denies any lower extremity edema, cough, sputum production, chest pain. He had some nausea without vomiting. Patient denies being s edentary and no long trips recently. No recent surgeries. He did have teeth extracted for which he is on a special mouth rinse. White count was 14.1, BUN 19 creatinine 1.32. Influenza testing negative. Troponin 0.486, 3.270 and 5.830. ProBNP 63. D-dimer was elevated at 3.57. EKG wasn't normal sinus rhythm. No acute changes. CTA of the chest revealed right upper lobe segmental pulmonary embolism extending into the subsegmental branches. ROS: No fever chills or rigors, no cough, phlegm or expectoration, Reports nausea, no vomiting or diarrhea, no hematuria, dysuria, no musculoskeletal complaints, no strokes or seizures, no skin lesions. EXAMINATION: Gen: This is a morbidly obese 63-year-old male. He is resting on the ER stretcher and appears to be in no acute distress. Vital signs: Afebrile, blood pressure 146/75, pulse ox 90% on 2 L nasal cannula, heart rate 80. HEENT: Head is atraumatic, normocephalic. Pupils equal, round. Sclerae is anicteric. NECK: Supple. No JVD. No lymphadenopathy. No thyromegaly. LUNGS: Clear to auscultation. No wheezes or rhonchi. No intercostal retractions. No chest wall tenderness. HEART: Regular rate and rhythm. No murmur. ABDOMEN: Soft. Morbidly obese. Bowel sounds are present. No masses. No tenderness. EXTREMITIES: Trace bilateral pedal edema. No calf tenderness. Dorsalis pedis +2 bilaterally. NEUROLOGICAL: Patient is awake, alert and oriented x3. Cranial nerves 2 through 12 are grossly intact. Nurse practitioner note has been reviewed, I agree with documented findings and plan of care. Patient was seen and examined. Past Medical History Past Medical History: Diabetes Mellitus, Hyperlipidemia, Hypertension Additional Past Medical History / Comment(s): basal cell carcinoma (no active treatment), neuropathy to lower extremities, elevated liver enzymes History of Any Multi-Drug Resistant Organisms: None Reported Additional Past Surgical History / Comment(s): tonsilectomy & skin cancer removal Past Anesthesia/Blood Transfusion Reactions: No Reported Reaction Past Psychological History: Anxiety, Depression Smoking Status: Never smoker Past Alcohol Use History: None Reported Past Drug Use History: None Reported - Past Family History Father Additional Family Medical History / Comment(s): unknown patient was adopted Mother Additional Family Medical History / Comment(s): unknown patient was adopted Medications and Allergies Home Medications Medication Instructions Recorded Confirmed Type Aspirin EC [Ecotrin Low Dose] 81 mg PO DAILY 09/25/16 10/25/18 History Metoprolol Tartrate [Lopressor] 50 mg PO DAILY 09/25/16 10/25/18 History Gabapentin [Neurontin] 300 mg PO TID 05/22/18 10/25/18 History HYDROcodone/APAP 5-325MG [[place] 1 tab PO DAILY PRN 05/22/18 10/25/18 History 5-325] INSULIN LISPRO (humaLOG) [humaLOG] See Protocol SQ TID 05/22/18 10/25/18 History Insulin Glargine [Lantus] 57 unit SQ BID 05/22/18 10/25/18 History Losartan/Hydrochlorothiazide 1 tab PO DAILY 05/22/18 10/25/18 History [Losartan-Hctz 100-25 mg Tab] Multivitamins, Thera [Multivitamin 1 tab PO DAILY 05/22/18 10/25/18 History (formulary)] Pravastatin Sodium [Pravachol] 40 mg PO HS 05/22/18 10/25/18 History Sertraline [Zoloft] 100 mg PO DAILY 05/22/18 10/25/18 History sitaGLIPtin [Januvia] 50 mg PO DAILY 05/22/18 10/25/18 History Cholecalciferol (Vitamin D3) 2,000 unit PO DAILY 10/25/18 10/25/18 History [Vitamin D3] Allergies Allergy/AdvReac Type Severity Reaction Status Date / Time lorazepam [From Ativan] AdvReac LETHARGIC Verified 10/25/18 21:14 Physical Exam Vitals: Vital Signs Temp Pulse Resp BP Pulse Ox 10/26/18 07:51 81 18 146/75 98 10/26/18 06:53 85 16 141/81 100 10/26/18 03:00 75 20 139/72 100 10/26/18 01:46 81 16 140/71 100 10/26/18 00:00 78 16 134/73 95 10/25/18 22:47 82 18 125/74 94 L 10/25/18 21:30 90 18 125/74 95 10/25/18 20:45 97.0 F L 94 18 118/68 95 Intake and Output 10/25/18 10/26/18 10/26/18 22:59 06:59 14:59 Intake Total 122.685 Balance 122.685 Intake: Intake, IV Titration 122.685 Amount Heparin Sod,Pork in 0.45% 122.685 NaCl 25,000 unit In 0.45 % NaCl 1 250ml.bag @ 18 UNITS/KG/HR 20.003 mls/hr IV .[id number] [facility] Rx#: [id number] Other: Weight 111.13 kg Results 10/25/18 21:04 10/25/18 21:04 Cardiac Enzymes 10/25/18 10/25/18 10/25/18 Range/Units 00:30 21:04 21:04 AST 92 H (17-59) U/L Troponin I 0.486 H* (0.000-0.034) ng/mL 10/26/18 10/26/18 Range/Units 00:30 05:53 AST (17-59) U/L Troponin I 3.270 H* 5.830 H* (0.000-0.034) ng/mL Coagulation 10/25/18 10/26/18 Range/Units 21:04 05:53 PT 11.4 (9.0-12.0) sec APTT 22.4 81.8 H (22.0-30.0) sec Lipids 10/26/18 Range/Units 05:53 Triglycerides 184 H (<150) mg/dL Cholesterol 153 (<200) mg/dL HDL Cholesterol 33 L (40-60) mg/dL CBC 10/25/18 Range/Units 21:04 WBC 14.1 H (3.8-10.6) k/uL RBC 5.27 (4.30-5.90) m/uL Hgb 15.2 (13.0-17.5) gm/dL Hct 46.0 (39.0-53.0) % Plt Count 253 (150-450) k/uL Comprehensive Metabolic Panel 10/25/18 Range/Units 21:04 Sodium 144 (137-145) mmol/L Potassium 3.5 (3.5-5.1) mmol/L Chloride 102 (98-107) mmol/L Carbon Dioxide 26 (22-30) mmol/L BUN 19 (9-20) mg/dL Creatinine 1.32 H (0.66-1.25) mg/dL Glucose 154 H (74-99) mg/dL Calcium 9.9 (8.4-10.2) mg/dL AST 92 H (17-59) U/L ALT 72 (21-72) U/L Alkaline Phosphatase 114 (38-126) U/L Total Protein 8.4 H (6.3-8.2) g/dL Albumin 4.5 (3.5-5.0) g/dL Current Medications Generic Name Dose Route Start Last Admin Trade Name Freq PRN Reason Stop Dose Admin Aspirin 325 mg 10/26/18 09:00 Aspirin PO DAILY [facility] Heparin Sodium (Porcine) 0 unit 10/26/18 00:46 Heparin IV PER PROTOCOL PRN Low PTT Protocol Sodium Chloride 1,000 mls @ 100 mls/hr 10/25/18 23:30 Saline 0.9% IV .Q10H [facility] Heparin Sodium/Sodium Chloride 250 mls @ 20.003 mls/hr 10/26/18 01:00 10/26/18 07:29 25,000 unit/ Sodium Chloride IV 16 units/kg/hr .[id number] [facility] 17.781 mls/hr Titration Protocol 18 UNITS/KG/HR Nitroglycerin 0.4 mg 10/25/18 23:26 Nitrostat SUBLINGUAL Q5M PRN Chest Pain Intake and Output 10/25/18 10/26/18 10/26/18 22:59 06:59 14:59 Intake Total 122.685 Balance 122.685 Intake: Intake, IV Titration 122.685 Amount Heparin Sod,Pork in 0.45% 122.685 NaCl 25,000 unit In 0.45 % NaCl 1 250ml.bag @ 18 UNITS/KG/HR 20.003 mls/hr IV .[id number] [facility] Rx#: [id number] Other: Weight 111.13 kg 10/25/18 21:04 10/25/18 21:04
[2018-10-26] MEDS: SODIUM CHLORIDE 0.9% 1,000 ML IV SCH ×2 (10:30→22:00)
[2018-10-26] MEDS ORDERED: LOSARTAN-HCTZ 50-12.5 MG 1 EACH TAB PO SCH (10:30)
[2018-10-26] MEDS ORDERED: METOPROLOL TARTRATE 50 MG TAB PO SCH (10:30)
[2018-10-26] MEDS ORDERED: ETOMIDATE 2 MG/ML 10 ML VIAL ONE (12:37)
[2018-10-26] MEDS ORDERED: MIDAZOLAM 1 MG/ML 5 ML VIAL ONE (12:37)
[2018-10-26] MEDS ORDERED: SUCCINYLCHOLINE CHLORIDE VIAL 200 MG/10 ML VIAL IV ONE (12:37)
[2018-10-26] MEDS ORDERED: LINAGLIPTIN 5 MG TABLET PO SCH (13:30)
[2018-10-26] MEDS ORDERED: SERTRALINE 100 MG TAB PO SCH (13:30)
[2018-10-26] MEDS ORDERED: HYDROcodone/APAP 5-325MG 1 EACH TAB PO PRN (13:36)
[2018-10-26 13:42] LABS: Glucose,Whole Blood 241 mg/dL (75-99)
--- NOTE | 2018-10-26 14:28 | ECHOF ---
Referral Reason:elevTrop MEASUREMENTS -------- HEIGHT: 182.9 cm WEIGHT: 111.1 kg BP: 141/81 RVIDd: 3.4 cm (< 3.3) IVSd: 1.4 cm (0.6 - 1.1) LVIDd: 4.1 cm (3.9 - 5.3) LVPWd: 1.4 cm (0.6 - 1.1) IVSs: 1.7 cm LVIDs: 3.7 cm LVPWs: 1.6 cm LA Diam: 3.7 cm (2.7 - 3.8) LAESV Index (A-L): 36.80 ml/m Ao Diam: 3.3 cm (2.0 - 3.7) AV Cusp: 2.4 cm (1.5 - 2.6) MV EXCURSION: 14.230 mm (> 18.000) MV EF SLOPE: 98 mm/s (70 - 150) EPSS: 1.0 cm MV E Michael: 0.94 m/s MV DecT: 188 ms MV A Michael: 1.03 m/s MV E/A Ratio: 0.91 RAP: 5.00 mmHg RVSP: 38.04 mmHg FINDINGS -------- Sinus rhythm. This was a technically difficult study with suboptimal apical views. The left ventricular size is normal. There is moderate concentric left ventricular hypertrophy. O verall left ventricular systolic function is normal with, an EF between 55 - 60 %. The right ventricle is mildly enlarged. LA is moderately dilated 34-39 ml/m2 The right atrium is normal in size. 5 ml of Lumason was utilized for enhancement of images. The aortic valve is trileaflet and appears structurally normal. There is trace mitral regurgitation. Mild tricuspid regurgitation present. There is mild pulmonary hypertension. The right ventricular systolic pressure, as measured by Doppler, is 38.04mmHg. There is no pulmonic regurgitation present. The aortic root size is normal. IVC Not well visulized. There is no pericardial effusion. CONCLUSIONS -------- 1. Sinus rhythm. 2. This was a technically difficult study with suboptimal apical views. 3. The left ventricular size is normal. 4. There is moderate concentric left ventricular hypertrophy. 5. Overall left ventricular systolic function is normal with, an EF between 55 - 60 %. 6. The right ventricle is mildly enlarged. 7. LA is moderately dilated 34-39 ml/m2 8. The right atrium is normal in size. 9. 5 ml of Lumason was utilized for enhancement of images. 10. The aortic valve is trileaflet and appears structurally normal. 11. There is trace mitral regurgitation. 12. Mild tricuspid regurgitation present. 13. There is mild pulmonary hypertension. 14. The right ventricular systolic pressure, as measured by Doppler, is 38.04mmHg. 15. There is no pulmonic regurgitation present. 16. The aortic root size is normal. 17. IVC Not well visulized. 18. There is no pericardial effusion. JBOSS ARCHITECT: Parul Smith RDCS
--- NOTE | 2018-10-26 16:03 | P.HPIM ---
History of Present Illness H&P Date: 10/26/18 Chief Complaint: Syncope Patient is a 59-year-old male with a known history of hypertension, diabetes type 2, hyperlipidemia, basal cell carcinoma on the back of his neck removal about 2 weeks ago, tooth extraction is also about 2 weeks ago and is still having pain came to ER after syncopal episode. Patient says that he was at home and felt woozy after he got up and was going to the kitchen and suddenly he passed out. Patient denied any head injury. Patient woke up and was found to be on the floor. EMS was called. Otherwise patient denied any complains of chest pain. No shortness of breath. Denied any recent illnesses. No cough or sputum production. No nausea vomiting or diarrhea. Denied any recent travel. Patient did have a flight trip to [place] about 3 months ago. Denied any otherwise recent travel. Denied any history of heart problems in the past. Patient follows with his abstract writer for basal cell carcinoma. Currently denied any complains of dizziness or lightheadedness. EKG showed normal sinus rhythm CT angiography the chest showed evidence of right upper lobe segmental pulmonary embolism extending into subsegmental branches. No other definite pulmonary emboli identified. 486, 3.27 and 5.8. NT proBNP 63 D-dimer is 3.57 Influenza negative. WBC 14.1, BUN 19 creatinine 1.32 Review of Systems Constitutional: Patient denies any fever or chills . No generalized weakness or weight loss. Abdomen: Patient denied nausea vomiting and diarrhea and abdominal pain. Cardiovascular: Patient denies any chest pain or short of breath no palpitations. Respiratory: patient denied any cough is from production. No shortness of breath Neurologic: Patient denied any numbness or tingling headache. Musculoskeletal: Patient denies any complaints of joint swelling or deformity. Skin: Negative Psychiatric: Negative Endocrine: No heat or cold intolerance. No recent weight gain. Genitourinary: No dysuria or hematuria. All other 14 point ROS negative except the above Past Medical History Past Medical History: Diabetes Mellitus, Hyperlipidemia, Hypertension Additional Past Medical History / Comment(s): basal cell carcinoma (no active treatment), neuropathy to lower extremities, elevated liver enzymes History of Any Multi-Drug Resistant Organisms: None Reported Additional Past Surgical History / Comment(s): tonsilectomy & skin cancer removal Past Anesthesia/Blood Transfusion Reactions: No Reported Reaction Past Psychological History: Anxiety, Depression Smoking Status: Never smoker Past Alcohol Use History: None Reported Past Drug Use History: None Reported - Past Family History Father Additional Family Medical History / Comment(s): unknown patient was adopted Mother Additional Family Medical History / Comment(s): unknown patient was adopted Medications and Allergies Home Medications Medication Instructions Recorded Confirmed Type Aspirin EC [Ecotrin Low Dose] 81 mg PO DAILY 09/25/16 10/25/18 History Metoprolol Tartrate [Lopressor] 50 mg PO DAILY 09/25/16 10/25/18 History Gabapentin [Neurontin] 300 mg PO TID 05/22/18 10/25/18 History HYDROcodone/APAP 5-325MG [[place] 1 tab PO DAILY PRN 05/22/18 10/25/18 History 5-325] INSULIN LISPRO (humaLOG) [humaLOG] See Protocol SQ TID 05/22/18 10/25/18 History Insulin Glargine [Lantus] 57 unit SQ BID 05/22/18 10/25/18 History Losartan/Hydrochlorothiazide 1 tab PO DAILY 05/22/18 10/25/18 History [Losartan-Hctz 100-25 mg Tab] Multivitamins, Thera [Multivitamin 1 tab PO DAILY 05/22/18 10/25/18 History (formulary)] Pravastatin Sodium [Pravachol] 40 mg PO HS 05/22/18 10/25/18 History Sertraline [Zoloft] 100 mg PO DAILY 05/22/18 10/25/18 History sitaGLIPtin [Januvia] 50 mg PO DAILY 05/22/18 10/25/18 History Cholecalciferol (Vitamin D3) 2,000 unit PO DAILY 10/25/18 10/25/18 History [Vitamin D3] Allergies Allergy/AdvReac Type Severity Reaction Status Date / Time lorazepam [From Ativan] AdvReac LETHARGIC Verified 10/25/18 21:14 Physical Exam Vitals: Vital Signs Temp Pulse Resp BP Pulse Ox 10/26/18 12:58 98.8 F 85 20 145/75 96 10/26/18 10:29 79 18 151/90 100 10/26/18 07:51 81 18 146/75 98 10/26/18 06:53 85 16 141/81 100 10/26/18 03:00 75 20 139/72 100 10/26/18 01:46 81 16 140/71 100 10/26/18 00:00 78 16 134/73 95 10/25/18 22:47 82 18 125/74 94 L 10/25/18 21:30 90 18 125/74 95 10/25/18 20:45 97.0 F L 94 18 118/68 95 Intake and Output 10/25/18 10/26/18 10/26/18 22:59 06:59 14:59 Intake Total 122.685 Balance 122.685 Intake: Intake, IV Titration 122.685 Amount Heparin Sod,Pork in 0.45% 122.685 NaCl 25,000 unit In 0.45 % NaCl 1 250ml.bag @ 18 UNITS/KG/HR 20.003 mls/hr IV .[id number] [facility] Rx#: [id number] Other: Weight 111.13 kg PHYSICAL EXAMINATION: Patient is lying in the bed comfortably, no acute distress, awake alert and oriented.. HEENT: Normocephalic. Neck is supple. Pupils reactive. Nostrils clear. Oral cavity is moist. Ears reveal no drainage. Right side of the tongue is bruised and swollen. No active bleeding. Neck reveals no JVD, carotid bruits, or thyromegaly. CHEST EXAMINATION: Trachea is central. Symmetrical expansion. Lung licona clear to auscultation and percussion. CARDIAC: Normal S1, S2 with no gallops. No murmurs ABDOMEN: Soft. Bowel sounds normal. No organomegaly. No abdominal bruits. Extremities: reveal no edema. No clubbing or cyanosis Neurologically awake, alert, oriented x3 with well-coordinated movements. No focal deficits noted Skin: No rash or skin lesions. Psychiatric: Coperative. Nonsuicidal Musculoskeletal: No joint swelling or deformity. Normal range of motion. Results CBC & Chem 7: 10/25/18 21:04 10/25/18 21:04 Labs: Abnormal Lab Results - Last 24 Hours (Table) 10/25/18 10/25/18 10/25/18 Range/Units 21:04 21:04 21:04 WBC 14.1 H (3.8-10.6) k/uL Neutrophils # 12.0 H (1.3-7.7) k/uL APTT (22.0-30.0) sec D-Dimer (<0.60) mg/L FEU Creatinine 1.32 H (0.66-1.25) mg/dL Glucose 154 H (74-99) mg/dL POC Glucose (mg/dL) (75-99) mg/dL Plasma Lactic Acid Howard (0.7-2.0) mmol/L AST 92 H (17-59) U/L Troponin I 0.486 H* (0.000-0.034) ng/mL Total Protein 8.4 H (6.3-8.2) g/dL Triglycerides (<150) mg/dL HDL Cholesterol (40-60) mg/dL Urine Protein (Negative) Urine Blood (Negative) Hyaline Casts (0-2) /lpf Urine Mucus (None) /hpf 10/25/18 10/25/18 10/26/18 Range/Units 21:25 21:49 00:30 WBC (3.8-10.6) k/uL Neutrophils # (1.3-7.7) k/uL APTT (22.0-30.0) sec D-Dimer 3.57 H (<0.60) mg/L FEU Creatinine (0.66-1.25) mg/dL Glucose (74-99) mg/dL POC Glucose (mg/dL) (75-99) mg/dL Plasma Lactic Acid Howard 3.8 H* (0.7-2.0) mmol/L AST (17-59) U/L Troponin I 3.270 H* (0.000-0.034) ng/mL Total Protein (6.3-8.2) g/dL Triglycerides (<150) mg/dL HDL Cholesterol (40-60) mg/dL Urine Protein (Negative) Urine Blood (Negative) Hyaline Casts (0-2) /lpf Urine Mucus (None) /hpf 10/26/18 10/26/18 10/26/18 Range/Units 01:30 05:53 05:53 WBC (3.8-10.6) k/uL Neutrophils # (1.3-7.7) k/uL APTT (22.0-30.0) sec D-Dimer (<0.60) mg/L FEU Creatinine (0.66-1.25) mg/dL Glucose (74-99) mg/dL POC Glucose (mg/dL) (75-99) mg/dL Plasma Lactic Acid Howard (0.7-2.0) mmol/L AST (17-59) U/L Troponin I 5.830 H* (0.000-0.034) ng/mL Total Protein (6.3-8.2) g/dL Triglycerides 184 H (<150) mg/dL HDL Cholesterol 33 L (40-60) mg/dL Urine Protein Trace H (Negative) Urine Blood Trace H (Negative) Hyaline Casts 4 H (0-2) /lpf Urine Mucus Rare H (None) /hpf 10/26/18 10/26/18 10/26/18 Range/Units 05:53 05:53 11:50 WBC (3.8-10.6) k/uL Neutrophils # (1.3-7.7) k/uL APTT 81.8 H 61.7 H (22.0-30.0) sec D-Dimer (<0.60) mg/L FEU Creatinine (0.66-1.25) mg/dL Glucose (74-99) mg/dL POC Glucose (mg/dL) (75-99) mg/dL Plasma Lactic Acid Howard 2.3 H* (0.7-2.0) mmol/L AST (17-59) U/L Troponin I (0.000-0.034) ng/mL Total Protein (6.3-8.2) g/dL Triglycerides (<150) mg/dL HDL Cholesterol (40-60) mg/dL Urine Protein (Negative) Urine Blood (Negative) Hyaline Casts (0-2) /lpf Urine Mucus (None) /hpf 10/26/18 10/26/18 Range/Units 11:50 13:40 WBC (3.8-10.6) k/uL Neutrophils # (1.3-7.7) k/uL APTT (22.0-30.0) sec D-Dimer (<0.60) mg/L FEU Creatinine (0.66-1.25) mg/dL Glucose (74-99) mg/dL POC Glucose (mg/dL) 241 H (75-99) mg/dL Plasma Lactic Acid Howard 2.3 H* (0.7-2.0) mmol/L AST (17-59) U/L Troponin I (0.000-0.034) ng/mL Total Protein (6.3-8.2) g/dL Triglycerides (<150) mg/dL HDL Cholesterol (40-60) mg/dL Urine Protein (Negative) Urine Blood (Negative) Hyaline Casts (0-2) /lpf Urine Mucus (None) /hpf Thrombosis Risk Factor Assmnt - DVT/VTE Prophylaxis DVT/VTE Prophylaxis: Pharmacologic Prophylaxis ordered Assessment and Plan Assessment: Acute right upper lobe segmental pulmonary embolism Syncope Lactic acidosis Elevated troponin likely due to pulmonary embolism Hypertension Hyperlipidemia Diabetes type 2 [id number] Obesity with BMI 32.2 Anxiety/depression No prior history of smoking Plan: Patient be continued on telemetry monitoring. Continue the heparin drip. Patient was seen by cardiology due to elevated troponin level. 2-D echocardiogram was ordered. Etiology of the pulmonary embolism could be due to underlying cancer. Patient will need oncology follow-up. Otherwise continue the current management and further recommendations based on the clinical course. Time with Patient: Greater than 30
[2018-10-26] MEDS: GABAPENTIN 300 MG CAP PO SCH (17:00)
[2018-10-26 17:18] LABS: Glucose,Whole Blood 232 mg/dL (75-99)
[2018-10-26] MEDS ORDERED: INSULIN ASPART (NovoLOG) 100 UNIT/ML VIAL SQ SCH (17:30)
[2018-10-26 18:57] VITALS: BMI 33.2
[2018-10-26 20:12] LABS: Glucose,Whole Blood 196 mg/dL (75-99)
[2018-10-26] MEDS ORDERED: METOPROLOL TARTRATE 5 MG/5 ML VIAL IVP ONE (20:30)
[2018-10-26] MEDS ORDERED: niCARdipine 25 MG in SODIUM CHLORIDE 0.9% 240 ML IV ONE (20:30)
[2018-10-26] MEDS ORDERED: LABETALOL SYRINGE 5 MG/ML IV ONE (20:30)
[2018-10-26] MEDS ORDERED: LABETALOL SYRINGE 5 MG/ML ONE (20:30)
[2018-10-26 20:35] LABS: INR 1.1 (<1.2); Partial Thromboplastin Time 60.7 sec (22.0-30.0); Prothrombin Time 11.7 sec (9.0-12.0)
[2018-10-26 20:42] LABS: Basophils # (A) 0.1 k/uL (0-0.2); Basophils % (A) 1 %; Eosinophils # (A) 0.2 k/uL (0-0.7); Eosinophils % (A) 1 %; HCT 47.2 % (39.0-53.0); HGB 14.7 gm/dL (13.0-17.5); Hypochromasia Marked; Lymphocytes # (A) 8.9 k/uL (1.0-4.8); Lymphocytes % (A) 49 %; MCHC 31.2 g/dL (31.0-37.0); Mean Platelet Volume 10.6; Monocytes % (A) 6 %; Neutrophils # (A) 7.1 k/uL (1.3-7.7); Neutrophils % (A) 40 %; Platelet Count 234 k/uL (150-450); RBC 5.08 m/uL (4.30-5.90); RDW 15.4 % (11.5-15.5)
[2018-10-26 20:55] LABS: Calcium 9.7 mg/dL (8.4-10.2); Potassium 4.9 mmol/L (3.5-5.1)
[2018-10-26] MEDS ORDERED: INSULIN DETEMIR (LEVEMIR) 100 UNIT/ML SYR SQ SCH (21:00)
[2018-10-26] MEDS ORDERED: PRAVASTATIN SODIUM 40 MG TAB PO SCH (21:00)
[2018-10-26 21:03] LABS: Glucose,Whole Blood 278 mg/dL (75-99)
[2018-10-26] MEDS ORDERED: CISATRACURIUM 2 MG/ML 5 ML VIAL IV ONE (21:21)
[2018-10-26] MEDS ORDERED: NOREPINEPHRINE 4 MG in SODIUM CHLORIDE 0.9% 250 ML IV SCH (21:30)
[2018-10-26] MEDS ORDERED: CISATRACURIUM 200 MG in SODIUM CHLORIDE 0.9% 180 ML IV SCH (21:45)
--- NOTE | 2018-10-26 21:47 | XR ---
EXAMINATION TYPE: XR chest 1V portable DATE OF EXAM: 10/26/2018 COMPARISON: 05/22/2018 INDICATION: Short of breath TECHNIQUE: Single frontal view of the chest is obtained. FINDINGS: The heart size is normal. The pulmonary vasculature is normal. There is diffuse increased lung markings bilaterally. Correlate for ARDS. Bilateral pulmonary edema c ould be considered. Pneumonia is within the differential. Endotracheal tube tip is above the lindsey. Nasogastric tube transverses the [id number] has tip in the region of the abdomen. IMPRESSION: 1. Diffuse bilateral lung opacification suggestive for developing ARDS.
[2018-10-26] MEDS: CLEVIDIPINE BUTYRATE 25 MG in EMPTY BAG 1 BAG IV SCH (22:16)
[2018-10-26] MEDS: EMPTY BAG 1 BAG with PROPOFOL 1,000 MG IV SCH (22:30)
[2018-10-26 23:44] LABS: ABG Base Excess -0.3 mmol/L; ABG HCO3 27 mmol/L (21-25); ABG Oxygen Saturation 91.7 % (94-97); ABG PCO2 64 mmHg (35-45); ABG PH 7.24 (7.35-7.45); ABG PO2 74 mmHg (83-108); ABG TCO2 29 mmol/L (19-24)
[2018-10-27] MEDS: GABAPENTIN 300 MG CAP PO SCH (00:30)
[2018-10-27] MEDS: SODIUM CHLORIDE 0.9% 1,000 ML IV SCH (00:30)
[2018-10-27 01:07] LABS: Glucose,Whole Blood 195 mg/dL (75-99)
[2018-10-27 01:59] VITALS: TEMP 100.5
--- NOTE | 2018-10-27 03:14 | XR ---
EXAM: XR Chest, 1 View CLINICAL HISTORY: ITS.REASON XR Reason: tube replacement TECHNIQUE: Frontal view of the chest. COMPARISON: Chest x-ray 10/26/18 IMPRESSION: ET tube terminates 5.4 cm from the lindsey. NG tube tip projects off the lower portion of the film.
[2018-10-27 03:15] LABS: ABG HCO3 18 mmol/L (21-25); ABG PCO2 64 mmHg (35-45); ABG PH 7.06 (7.35-7.45); ABG PO2 66 mmHg (83-108); ABG TCO2 20 mmol/L (19-24)
[2018-10-27 03:16] LABS: ABG Base Excess -12.4 mmol/L
[2018-10-27 03:44] VITALS: RESP 24
[2018-10-27] MEDS: CLEVIDIPINE BUTYRATE 25 MG in EMPTY BAG 1 BAG IV SCH (03:49)
[2018-10-27] MEDS: EMPTY BAG 1 BAG with PROPOFOL 1,000 MG IV SCH (03:49)
[2018-10-27 04:07] VITALS: BP 88/47; PULSE 86
[2018-10-27] MEDS ORDERED: ASPIRIN 81 MG PO SCH (09:00)
[2018-10-27] MEDS ORDERED: MULTIVITAMINS, THERA 1 EACH TAB PO SCH (12:00)
--- NOTE | 2018-10-28 09:04 | CDI ---
Documentation Clarification Form Date: 10/28/2018 8:39:44 AM From: Stefany Montgomery Phone: If you have a question about this query, please contact Clementina Teague Squaring Shear Operator at [phone] between 8am and 5pm. Admit Date: 10/25/2018 11:27:00 PM Patient Name: Farooq Carrillo Visit Number: [id number] Discharge Date: 10/27/2018 6:22:00 AM ATTENTION: The Clinical Documentation Specialists (CDI) and [facility] Coding Staff appreciate your assistance in clarifying documentation. Please respond to the clarification below the line at the bottom and electronically sign. The CDI & [facility] Coding staff will review the response and follow-up if needed. Please note: Queries are made part of the Legal Health Record. If you have any questions, please contact the author of this message via ITS. Dr. Elba Blanco The patient presented with syncope and found to have a PE. October 26, patient was intubated and on mechanical vent. Please clarify the reason for the mechanical vent. History/Risk Factors: PE Clinical Indicators: somnolent and obtunded on October 26 Vital signs: HR 121 on 10/26 20 123/78 91.7 ABG/CBG: pH 7.24 pO2 pCO2 64 HCo3 27 Total 29 91.7 Treatment: intubation mechanical vent to ICU and transferred 10/27 to [facility] O2/Vent/BiPap In your professional opinion, can you please clarify the reason for patient's intubation. Specificity & if acute or acute on chronic. Respiratory Failure (further specify (if known)): With hypercapnia? (pCO2 >50 and pH <7.35) With hypoxia? (pO2 <60 mm Hg or SpO2 <91% on room air) Other Diagnosis, please specify Unable to determine Respiratory Failure With hypercapnia MTDD
--- NOTE | 2018-11-05 01:05 | P.DS ---
Providers Date of admission: 10/25/18 23:27 Expected date of discharge: 10/27/18 Attending physician: Fanny Vanegas Consults: 10/25/18 23:26 Consult Physician Urgent Consulting Provider: Kirstin Rajput Consult Reason/Comments: elevtrop Do you want consulting provider notified?: Yes 10/26/18 00:46 Consult Physician Urgent Consulting Provider: Peewee Serrano Consult Reason/Comments: PE/icu mgmt Do you want consulting provider notified?: Yes 10/26/18 14:50 Consult Physician Urgent Consulting Provider: Nando Stevens Consult Reason/Comments: recent basal cell carcinoma removal- consult requested by Dr. Blanco Do you want consulting provider notified?: Yes Primary care physician: Klaudia Mcknight Hospital Course: Discharge diagnosis Acute hypoxic and hypercapnic respiratory failure requiring mechanical ventilation Possible ARDS Acute right upper lobe segmental pulmonary embolism Syncope Lactic acidosis Elevated troponin likely due to pulmonary embolism Hypertension Hyperlipidemia Diabetes type 2 [id number] Obesity with BMI 32.2 Anxiety/depression No prior history of smoking Hospital course Patient is a 59-year-old male with a known history of hypertension, diabetes type 2, hyperlipidemia, basal cell carcinoma on the back of his neck removal about 2 weeks ago, tooth extraction is also about 2 weeks ago and is still having pain came to ER after syncopal episode. Patient says that he was at home and felt woozy after he got up and was going to the kitchen and suddenly he passed out. Patient denied any head injury. Patient woke up and was found to be on the floor. EMS was called. Otherwise patient denied any complains of chest pain. No shortness of breath. Denied any recent illnesses. No cough or sputum production. No nausea vomiting or diarrhea. Denied any recent travel. Patient did have a flight trip to [place] about 3 months ago. Denied any otherwise recent travel. Denied any history of heart problems in the past. 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 Currently denied any complains of dizziness or lightheadedness. EKG showed normal sinus rhythm CT angiography the chest showed evidence of right upper lobe segmental pulmonary embolism extending into subsegmental branches. No other definite pulmonary emboli identified. 486, 3.27 and 5.8. NT proBNP 63 D-dimer is 3.57 Influenza negative. WBC 14.1, BUN 19 creatinine 1.32 10/27/2018 Overnight patient went into hypercapnic respiratory failure and required mechanical ventilation. Currently on mechanical ventilator. Chest x-ray showed diffuse bilateral lung opacification suggestive of developing ARDS. 2-D echocardiogram showed normal ejection fraction. No pulmonary hypertension noted. Patient is being continued on heparin drip. Patient was seen by pulmonary and recommends tertiary care facility transfer for possible clot extraction. Discussed with the physician at [facility] and updated clinical status. Patient is being transferred to [facility] for further management. Discharge physical examination was done and vitals reviewed. Total time taken greater than 35 minutes including 18 minutes for counseling and coordination of care. Patient Condition at Discharge: Serious Plan - Discharge Summary Discharge Rx Participant: Yes New Discharge Prescriptions: No Action Aspirin EC [Ecotrin Low Dose] 81 mg PO DAILY Metoprolol Tartrate [Lopressor] 50 mg PO DAILY Gabapentin [Neurontin] 300 mg PO TID HYDROcodone/APAP 5-325MG [Malott 5-325] 1 tab PO DAILY PRN PRN Reason: Pain Insulin Glargine [Lantus] 57 unit SQ BID INSULIN LISPRO (humaLOG) [humaLOG] See Protocol SQ TID Losartan/Hydrochlorothiazide [Losartan-Hctz 100-25 mg Tab] 1 tab PO DAILY Multivitamins, Thera [Multivitamin (formulary)] 1 tab PO DAILY Pravastatin Sodium [Pravachol] 40 mg PO HS Sertraline [Zoloft] 100 mg PO DAILY sitaGLIPtin [Januvia] 50 mg PO DAILY Cholecalciferol (Vitamin D3) [Vitamin D3] 2,000 unit PO DAILY Discharge Medication List Aspirin EC [Ecotrin Low Dose] 81 mg PO DAILY 09/25/16 [History] Metoprolol Tartrate [Lopressor] 50 mg PO DAILY 09/25/16 [History] Gabapentin [Neurontin] 300 mg PO TID 05/22/18 [History] HYDROcodone/APAP 5-325MG [Malott 5-325] 1 tab PO DAILY PRN 05/22/18 [History] INSULIN LISPRO (humaLOG) [humaLOG] See Protocol SQ TID 05/22/18 [History] Insulin Glargine [Lantus] 57 unit SQ BID 05/22/18 [History] Losartan/Hydrochlorothiazide [Losartan-Hctz 100-25 mg Tab] 1 tab PO DAILY 05/22/18 [History] Multivitamins, Thera [Multivitamin (formulary)] 1 tab PO DAILY 05/22/18 [History] Pravastatin Sodium [Pravachol] 40 mg PO HS 05/22/18 [History] Sertraline [Zoloft] 100 mg PO DAILY 05/22/18 [History] sitaGLIPtin [Januvia] 50 mg PO DAILY 05/22/18 [History] Cholecalciferol (Vitamin D3) [Vitamin D3] 2,000 unit PO DAILY 10/25/18 [History] Follow up Appointment(s)/Referral(s): Klaudia Mcknight MD [Primary Care Provider] - 1-2 days Discharge Disposition: TRANSFER TO SHORT TERM HOSP
== END 2018-10-27 06:22 | disposition short-term general hospital (02) | DRG 208 ==
LOC: EC 20:43 → 3SCARD 23:27 → 2SICU 10-26 20:49
PROVIDERS: ADMIT Hospitalist; ATTEND Hospitalist
PROC: 5A1935Z Respiratory Ventilation, Less than 24 Consecutive Hours (ICD-10-PCS; principal; 2018-10-26)
PROC: 0BH17EZ Insertion of Endotracheal Airway into Trachea, Via Natural or Artificial Opening (ICD-10-PCS; 2018-10-26)
DX: I26.99 Other pulmonary embolism without acute cor pulmonale (principal); J96.02 Acute respiratory failure with hypercapnia; J96.01 Acute respiratory failure with hypoxia; E87.2 Acidosis; R74.8 Abnormal levels of other serum enzymes; C44.91 Basal cell carcinoma of skin, unspecified; E11.40 Type 2 diabetes mellitus with diabetic neuropathy, unspecified; Z79.4 Long term (current) use of insulin; E66.01 Morbid (severe) obesity due to excess calories; Z68.32 Body mass index [BMI] 32.0-32.9, adult; E78.5 Hyperlipidemia, unspecified; E86.0 Dehydration; F32.9 Major depressive disorder, single episode, unspecified; F41.9 Anxiety disorder, unspecified; I10 Essential (primary) hypertension; Z79.82 Long term (current) use of aspirin; Z79.899 Other long term (current) drug therapy; Z85.828 Personal history of other malignant neoplasm of skin; E66.9 Obesity, unspecified; E11.9 Type 2 diabetes mellitus without complications
CPT/HCPCS: 36415; 36600; 71045; 71275; 80048; 80053; 80061; 81001; 82805; 83605; 83735; 83880; 84100; 84484; 85025; 85379; 85610; 85730; 87086; 87502; 93005; 93306; 94002; 94003; 96361; 96365; 96366; 96375; 96376; 99291

== ENCOUNTER → 2019-05-02 | Outpatient (CLI) | payer MEDICARE, OTHER ==
--- NOTE | 2019-05-02 09:23 | US ---
EXAMINATION TYPE: US venous doppler duplex LE DATE OF EXAM: 05/02/2019 8:56 AM COMPARISON: NONE CLINICAL HISTORY: I82.5Z9 DVT. History of PE, patient on eloquist. SIDE PERFORMED: Bilateral TECHNIQUE: The lower extremity deep venous system is examined utilizing real time linear array sonog elizabeth with graded compression, doppler sonography and color-flow sonography. VESSELS IMAGED: External Iliac Vein (EIV) Common Femoral Vein Deep Femoral Vein Greater Saphenous Vein * Femoral Vein Popliteal Vein Small Saphenous Vein * Proximal Calf Veins (* superficial vessels) Right Leg: Negative for DVT Left Leg: Negative for DVT Grayscale, color doppler, spectral doppler imaging performed of the deep veins of the bilateral lower extremities. There is normal flow, compressibility, vascular waveforms. IMPRESSION: No ultrasound evidence for acute DVT in either lower extremity.
[2019-05-02 09:53] LABS: African American GFR (CKD) >90 (>60 ml/min/1.73 sqM); Blood Urea Nitrogen 14 mg/dL (9-20)
--- NOTE | 2019-05-02 10:27 | CT ---
EXAMINATION TYPE: CT angio chest DATE OF EXAM: 05/02/2019 COMPARISON: CTA chest October 25, 2018 HISTORY: History of PE CT DLP: 667 mGycm. Automated Exposure Control for Dose Reduction was Utilized. CONTRAST: CTA scan of the thorax is performed with IV Contrast, patient injected with 80 mL of Isovue 300, pulm onary embolism protocol. MIP Images are created on CT scanner and reviewed. FINDINGS: LUNGS: There is persistent patchy posterior bibasilar linear scarring and/or atelectasis greater on t he right. No new suspicious consolidation or groundglass opacity. There is no pleural effusion or pne umothorax seen bilaterally. The tracheobronchial tree is patent. MEDIASTINUM: There is suboptimal bolus on current study with most dense contrast in the SVC and near equal contrast in the aorta versus pulmonary arteries, there is no convincing evidence for pulmonary embolism on this study including right upper lung segmental and subsegmental branches as seen on prio r.. There are no greater than 1 cm hilar or mediastinal lymph nodes. No significant pericardial ef fusion is seen. Cardiomegaly is redemonstrated. Moderate to severe three-vessel coronary artery calci fication is again seen. OTHER: Moderate to severe multilevel spurring. Small degree of bilateral gynecomastia redemonstrated. IMPRESSION: Suboptimal study without pulmonary embolism on current exam. No new suspicious acute pulm onary process.
== END | disposition home or self-care (01) ==
LOC: RADUSWWP 08:26
PROVIDERS: ATTEND Internal Medicine Hematology & Oncology
DX: I82.5Z9 Chronic embolism and thrombosis of unspecified deep veins of unspecified distal lower extremity (principal); I26.99 Other pulmonary embolism without acute cor pulmonale; Z88.8 Allergy status to other drugs, medicaments and biological substances
CPT/HCPCS: 82565; 84520; 93970; 71275; 36415; Q9967